=== PATIENT | female | born 1955 | race Caucasian/White ===

== ENCOUNTER 2022-03-06 08:28 | Outpatient (CLI) | payer MEDICARE, OTHER, SELFPAY ==
[2022-03-06 09:24] LABS: Basophils # 0.1 10^3/uL (0.0-0.1); Basophils % 0.9 %; Eosinophils # 0.1 10^3/uL (0.0-0.8); Eosinophils % 1.4 %; Hematocrit 44.5 % (37.0-47.0); Hemoglobin 14.5 g/dL (11.5-15.3); Lymphocytes # 1.8 10^3/uL (0.8-4.8); Lymphocytes % 31.4 %; Mean Corpuscular HGB Conc 32.6 g/dL (30.0-36.0); Mean Corpuscular Hemoglobin 30.4 pg (28.0-34.0); Mean Corpuscular Volume 93.3 fl (81-99); Mean Platelet Volume 10.7 fL (7.4-10.4); Monocytes # 0.4 10^3/uL (0.2-0.9); Monocytes % 6.5 %; Neutrophils # 3.33 10^3/uL (1.8-7.7); Neutrophils % 59.6 %; Nucleated Red Blood Cells % 0 %; Platelet Count 259 10^3/cmm (130-400); Red Blood Count 4.77 10^6/uL (4.1-5.3); White Blood Count 5.6 10^3/uL (4.0-10.0)
[2022-03-06 09:25] LABS: Erythrocyte Sedimentation Rate 3 mm/hr (0-15)
[2022-03-06 09:47] LABS: Alanine Aminotransferase 23 U/L (0-33); Aspartate Amino Transferase 19 U/L (0-32); C Reactive Protein 5.3 mg/L (0.0-4.9); Glomerular Filtration Rate 100.3 mL/min (90-130)
[2022-03-06 12:26] LABS: 25 Hydroxy Vitamin D 51 ng/mL (30-100)
== END 2022-03-06 08:29 | disposition home or self-care (01) ==
PROVIDERS: Visit Provider Physician Assistant
DX: Z01.89 Encounter for other specified special examinations (principal)
CPT/HCPCS: 36415; 82306; 82565; 84450; 84460; 85025; 85651; 86140

== ENCOUNTER → 2022-04-09 14:13 | Outpatient (BNVA) | payer MEDICARE, OTHER, SELFPAY | PROVIDERS: PCP Family Medicine; Visit Provider Specialist | DX: M17.0 Bilateral primary osteoarthritis of knee (principal) | CPT/HCPCS: 73560; 73565; 99205 ==

== ENCOUNTER 2022-04-20 07:23 | Outpatient (CLI) | payer MEDICARE, OTHER, SELFPAY ==
--- NOTE | 2022-04-20 07:30 | CT_ITS ---
WS: [id number] CT RIGHT knee, noncontrast HISTORY: right knee arthroplasty TECHNIQUE: Protocol for AARON total knee replacement has been obtained. This includes axial imaging th rough the RIGHT hip, RIGHT knee and RIGHT ankle. DLP: 883.21 mGy.cm COMPARISON: Radiograph 04/09/2022 Bilateral hips without significant joint space narrowing. No bone destruction. RIGHT knee: Very slight lateral subluxation of the patella. Very minimal joint space narrowing and os teophytic changes at the knee joint. RIGHT ankle: Negative. CT/CT knee RT wo con* [id number] IMPRESSION: CT imaging provided for [facility] robotic total knee replacement.
== END 2022-04-20 07:24 | disposition home or self-care (01) ==
PROVIDERS: PCP Family Medicine; Visit Provider Specialist
DX: Z96.651 Presence of right artificial knee joint (principal)
CPT/HCPCS: 73700

== ENCOUNTER 2022-05-01 12:24 | Inpatient (IN) | payer MEDICARE, OTHER, SELFPAY ==
[2022-04-24 11:20] LABS: Basophils % 0.6 %; Eosinophils # 0.1 10^3/uL (0.0-0.8); Eosinophils % 1.6 %; Hematocrit 45.8 % (37.0-47.0); Hemoglobin 15.4 g/dL (11.5-15.3); Lymphocytes # 2.1 10^3/uL (0.8-4.8); Lymphocytes % 33.3 %; Mean Corpuscular HGB Conc 33.6 g/dL (30.0-36.0); Mean Corpuscular Hemoglobin 30.8 pg (28.0-34.0); Mean Corpuscular Volume 91.6 fl (81-99); Mean Platelet Volume 10.6 fL (7.4-10.4); Monocytes # 0.5 10^3/uL (0.2-0.9); Monocytes % 7.2 %; Neutrophils # 3.54 10^3/uL (1.8-7.7); Neutrophils % 57.1 %; Nucleated Red Blood Cells % 0 %; Platelet Count 294 10^3/cmm (130-400); Red Cell Distribution Width 12.9 % (12.1-15.1); White Blood Count 6.2 10^3/uL (4.0-10.0)
[2022-04-24 11:30] LABS: Add Urine Microscopic? YES; Bilirubin Urine Neg (Negative); Blood Urine 2+ (Negative); Glucose Urine UA Norm (Normal); Ketones Urine Negative (Negative); Leukocyte Esterase Urine Negative (Negative); Nitrate Urine Negative (Negative); Protein Urine Neg (Negative); RBC Urine RARE /hpf (0-2); Urine Appearance Clear (CLEAR); Urine Color Yellow (Yellow); Urobilinogen Urine Norm (Negative); pH Urine 6 (5-7)
[2022-04-24 11:33] VITALS: BMI 37.6
[2022-04-24 11:42] LABS: Alanine Aminotransferase 37 U/L (0-33); Albumin Level 4.3 g/dL (3.5-5.2); Alkaline Phosphatase 99 U/L (35-105); Anion Gap 12.8 (5-19); Aspartate Amino Transferase 32 U/L (0-32); Blood Urea Nitrogen 12 mg/dL (8-23); Carbon Dioxide 30 mmol/L (22-29); Chloride 104 mmol/L (98-107); Globulin 2.9 g/dL (1.3-4.6); Glucose 155 mg/dL (65-115); Osmolality Calculated 299 mOsm/kg (285-295); Potassium 3.8 mmol/L (3.5-5.1); Sodium 143 mmol/L (136-145); Total Bilirubin 0.4 mg/dL (0.15-1.2); Total Protein 7.2 g/dL (6.6-8.7)
--- NOTE | 2022-04-24 11:51 | P.ANESASSM_ITS ---
Pre-Anesthetic Assessment Height/Weight: Height 1.57 m Weight 93.44 kg Preop Diagnosis: Primary osteoarthritis right knee Operation Date: 05/01/22 07:00 Proposed Procedures p RIGHT TOTAL KNEE ARTHROPLASTY WITH AARON GUIDANCE 57465, M17.10(Right) - Crystal Le MD Familial anesthetic complications: None Social No alcohol and No tobacco former smoker Exam alert, oriented x 3, clear to auscultation bilaterally and regular rate & rhythm Airway Mallampati: Class II Dentition: false Pulmonary None reported CV/HEM Hypertension None reported Hepatic None reported GI None reported Metabolic Hyperlipidemia and Thyroid Disease [facility] [place] None reported Neuropsych None reported Anesthetic Plan ASA status: 3 Anesthesia: Regional (specify below) Other: spinal + adductor Risk of > 500 ml blood loss (7ml/kg in children): Yes, adequate IV access and fluids planned Medications/Allergies Home Medications Medication Instructions Recorded Confirmed Last Taken Type adalimumab 40 mg/0.4 mL 40 mg SUBCUT Q14D 04/03/22 04/24/22 04/13/22 History subcutaneous pen kit (Humira(CF) Pen) folic acid 1 mg tablet 1 mg PO DAILY 04/03/22 04/24/22 04/24/22 History hydroxychloroquine 200 mg tablet 200 mg PO BID 04/03/22 04/24/22 04/24/22 History methotrexate sodium 2.5 mg tablet 20 mg PO .WEEKLY 04/03/22 04/24/22 04/20/22 History atorvastatin 10 mg tablet 10 mg PO BEDTIME 04/24/22 04/24/22 04/24/22 History cholecalciferol (vitamin D3) 25 50 mcg PO DAILY 04/24/22 04/24/22 04/24/22 History mcg (1,000 unit) capsule (Vitamin D3) levothyroxine 100 mcg capsule 100 mcg PO BEDTIME 04/24/22 04/24/22 04/24/22 History pregabalin 100 mg capsule 100 mg PO BID 04/24/22 04/24/22 04/24/22 History Allergies Allergy/AdvReac Type Severity Reaction Status Date / Time Sulfa (Sulfonamide Allergy Unknown Verified 04/09/22 14:15 Antibiotics) FOR[facility]LY [facility] Anesthesia Medical History Dyslipidemia Inflammatory polyarthropathy Osteoarthritis of right knee Type 2 diabetes mellitus without complications Vitamin D deficiency, unspecified Surgical History H/O thyroidectomy Partial H/O: hysterectomy Total. History of ankle surgery Left History of carpal tunnel surgery Left History of partial adrenalectomy Left - benign History of thumb surgery Left Hx of tonsillectomy Data Anesthesia 04/24/22 11:05 04/24/22 11:05 Short CBC 04/24/22 Range/Units 11:05 WBC 6.2 (4.0-10.0) 10^3/uL Hgb 15.4 H (11.5-15.3) g/dL Hct 45.8 (37.0-47.0) % MCV 91.6 (81-99) fl Plt Count 294 (130-400) 10^3/cmm Neut % (Auto) 57.1 % Neut # (Auto) 3.54 (1.8-7.7) 10^3/uL BMP 04/24/22 11:05 Sodium 143 Potassium 3.8 Chloride 104 BUN 12 Creatinine 0.6 Calcium 10.0 Liver Function 04/24/22 Range/Units 11:05 Total Bilirubin 0.4 (0.15-1.2) mg/dL AST 32 (0-32) U/L Alkaline Phosphatase 99 (35-105) U/L Albumin 4.3 (3.5-5.2) g/dL Urine 04/24/22 Range/Units 11:00 Urine Color Yellow (Yellow) Urine Appearance Clear (CLEAR) Urine pH 6 (5-7) Ur Specific [place] 1.010 (1.005-1.030) Urine Protein Neg (Negative) Urine Glucose (UA) Norm (Normal) Urine Ketones Negative (Negative) Urine Nitrate Negative (Negative) Urine Bilirubin Neg (Negative) Ur Leukocyte Esterase Negative (Negative) Urine RBC Rare (0-2) /hpf Urine WBC None (0-5) /hpf Cardiac Studies: No Data to Display
[2022-05-01] VITALS (18 sets, daily range): BP systolic 97–126; BP diastolic 47–72; PULSE 58–109; RESP 11–18; TEMP 36.1–37.6; O2SAT 90–100
[2022-05-01] MEDS: acetaminophen 1,000 MG/100 ML PIGGYBACK 400 MG IV ×2 (07:24→23:19)
[2022-05-01] MEDS: CELEcoxib 200 mg Capsule 400 MG PO (07:24)
[2022-05-01] MEDS: sodium chloride 0.9% 1,000 ML 30 ML IV (07:25)
--- NOTE | 2022-05-01 07:38 | P.ANESUD_ITS ---
Pre-Anesthetic Update Pre-Anesthetic Assessment: Date of Surgery/Procedure: 05/01/22 Preop Malou gnosis: Primary osteoarthritis right knee Proposed Procedure: Operation Date: 05/01/22 09:00 Proposed Procedures p RIGHT TOTAL KNEE ARTHROPLASTY WITH AARON GUIDANCE 09257, M17.10(Right) - Crystal Le MD Any changes to Pre-Anesthetic Assessment?: No Last Intake: Intake Last Liquid Date 04/30/22 Last Liquid Time 20:00 Last Solid Date 04/30/22 Last Solid Time 20:00 Exam: Pre-Anes Outpt Exam: alert, oriented x 3, clear to auscultation bilaterally and regular rate & rhythm Cardiac Studies: No Data to Display
--- NOTE | 2022-05-01 08:54 | P.HPUD_ITS ---
Surgery/Procedure H&P Update DATE OF PROCEDURE: May 01, 2022 DATE H&P PERFORMED: 04/09/22 H&P UPDATE INFORMATION: I have reviewed H&P completed within last 30 days, I have examined patient prior to procedure, No changes to prior documentation and H&P is in [facility] [place] EMR on date indicated PREOP DIAGNOSIS: Primary osteoarthritis right knee PLANNED PROCEDURE: Operation Date: 05/01/22 09:00 Proposed Procedures p RIGHT TOTAL KNEE ARTHROPLASTY WITH AARON GUIDANCE 58190, M17.10(Right) - Crystal Le MD Related Problem List Diagnoses (1) Osteoarthritis of right knee: Qualifiers: Osteoarthritis type: primary Qualified Code(s): M17.11 - Unilateral primary osteoarthritis, right knee
[2022-05-01] MEDS: ceFAZolin 2,000 MG in sodium chloride 0.9% (plus) 50 ML 100 MG IV ×2 (09:23→17:42)
[2022-05-01 10:22] LABS: Hematocrit 38.2 % (37.0-47.0); Hemoglobin 12.6 g/dL (11.5-15.3); Mean Corpuscular Hemoglobin 30.3 pg (28.0-34.0); Mean Corpuscular Volume 91.8 fl (81-99); Mean Platelet Volume 10.8 fL (7.4-10.4); Platelet Count 238 10^3/cmm (130-400); Red Blood Count 4.16 10^6/uL (4.1-5.3); Red Cell Distribution Width 12.6 % (12.1-15.1); White Blood Count 6.2 10^3/uL (4.0-10.0)
[2022-05-01 10:48] LABS: Absolute Neutrophil 3.8 10^3/cmm (1.4-6.5); Absolute Segmented Neutrophil 3.8 10/cmm (1.6-7.1); Eosinophils 1 %; Lymphocytes 29 %; Lymphocytes Absolute 2.1 10^3/cmm (1.2-3.4); Monocytes Absolute 0.2 10^3/cmm (0.1-0.6); Platelet Estimate Normal (Normal); Segmented Neutrophils 61 %; Total Cells Counted 100 (0-100)
--- NOTE | 2022-05-01 11:21 | P.ANESASSM_ITS ---
Pre-Anesthetic Assessment Height/Weight: Height 1.57 m Weight 93.44 kg Temp Pulse Resp BP Pulse Ox O2 Del Method 97 F L 58 L 18 105/69 94 05/01/22 07:39 05/01/22 07:39 05/01/22 07:39 05/01/22 07:39 05/01/22 07:39 05/01/22 07:39 Preop Diagnosis: Primary osteoarthritis right knee Operation Date: 05/01/22 09:00 Proposed Procedures p RIGHT TOTAL KNEE ARTHROPLASTY WITH AARON GUIDANCE 91386, M17.10(Right) - Crystal Le MD Familial anesthetic complications: none Was Beta Justin taken within 24 hours: N/A Was Clonidine taken within 24 hours: N/A Last intake: Intake Last Liquid Date 04/30/22 Last Liquid Time 20:00 Last Solid Date 04/30/22 Last Solid Time 20:00 Social No alcohol and No tobacco Exam alert, oriented x 3, clear to auscultation bilaterally and regular rate & rhythm Airway Submandibular: within normal limits Cervical ROM: within normal limits Mallampati: Class II Dentition: full Metabolic Diabetes Mellitus, Hyperlipidemia and Thyroid Disease [facility] Osteoarthritis/DJD Neuropsych Cerebrovascular Accident, Deficit (vision issues) and Neuropathy (pain) Anesthetic Plan ASA status: 3 Anesthesia: General and Regional (specify below) (Discussed popliteal blk for postop pain if extreme pain postop (surgeon wants to do nerve eval first)) Medications/Allergies Home Medications Medication Instructions Recorded Confirmed Last Taken Type adalimumab 40 mg/0.4 mL 40 mg SUBCUT Q14D 04/03/22 04/24/22 04/13/22 History subcutaneous pen kit (Humira(CF) Pen) folic acid 1 mg tablet 1 mg PO DAILY 04/03/22 05/01/22 1 Day Ago History ~04/30/22 hydroxychloroquine 200 mg tablet 200 mg PO BID 04/03/22 05/01/22 1 Day Ago History ~04/30/22 methotrexate sodium 2.5 mg tablet 20 mg PO .WEEKLY 04/03/22 05/01/22 1 Day Ago History ~04/30/22 atorvastatin 10 mg tablet 10 mg PO BEDTIME 04/24/22 05/01/22 1 Day Ago History ~04/30/22 cholecalciferol (vitamin D3) 25 50 mcg PO DAILY 04/24/22 05/01/22 1 Day Ago History mcg (1,000 unit) capsule (Vitamin ~04/30/22 D3) levothyroxine 100 mcg capsule 100 mcg PO BEDTIME 04/24/22 05/01/22 1 Day Ago History ~04/30/22 pregabalin 100 mg capsule 100 mg PO BID 04/24/22 05/01/22 1 Day Ago History ~04/30/22 Allergies Allergy/AdvReac Type Severity Reaction Status Date / Time Sulfa (Sulfonamide Allergy Unknown Verified 05/01/22 07:12 Antibiotics) Current Medications Generic Name Dose Route Start Last Admin Trade Name Freq PRN Reason Stop Dose Admin Sodium Chloride 1,000 mls @ 30 mls/hr 05/01/22 07:15 05/01/22 07:25 Sodium Chloride 0.9% IV 05/02/22 07:14 30 mls/hr .Q24H MEENA Administration PFSH Anesthesia Medical History Dyslipidemia Inflammatory polyarthropathy Osteoarthritis of right knee Type 2 diabetes mellitus without complications Vitamin D deficiency, unspecified Surgical History H/O thyroidectomy Partial H/O: hysterectomy Total. History of ankle surgery Left History of carpal tunnel surgery Left History of partial adrenalectomy Left - benign History of thumb surgery Left Hx of tonsillectomy Data Anesthesia 05/01/22 10:11 04/24/22 11:05 Short CBC 05/01/22 Range/Units 10:11 WBC 6.2 (4.0-10.0) 10^3/uL Hgb 12.6 (11.5-15.3) g/dL Hct 38.2 (37.0-47.0) % MCV 91.8 (81-99) fl Plt Count 238 (130-400) 10^3/cmm Microbiology 05/01/22 10:05 Gram Stain - Final Knee - Right Cardiac Studies: No Data to Display
--- NOTE | 2022-05-01 11:25 | ANES.PROC ---
Anesthesia Procedures Procedure/Date: 05/01/22 Nerve Block ^: Nerve Block 1: Main Anesthesia: spinal anesthesia block Time Out Performed: Yes Consent: requested by attending/covering physician, from patient, risks and benefits reviewed and patient agrees to proceed Nerve block location: adductor canal (right) Anesthesia monitors applied: pulse oximetry, EKG, BP cuff and oxygen Nerve block position: supine Anesthetic Used: ropivicaine 0.5% Amount of anesthesia used (mL): 20 Ultrasound used to: recognize landmarks Nerve Stimulator Used?: No Interscalene/Femoral BLK: 4 stimuplex 21 g needle used for position and inplane approach Injection: neg aspiration of heme Patient Tolerated Procedure: well Complications: none
[2022-05-01] MEDS: ceFAZolin 1,000 mg SDV 3000 MG IRRIGATION (11:26)
[2022-05-01] MEDS: ceFAZolin 1,000 mg SDV 2000 MG IRRIGATION (11:27)
[2022-05-01] MEDS: vancomycin 1,000 MG SDV 1000 MG XX (11:29)
--- NOTE | 2022-05-01 12:08 | PM.OP ---
Operative Report Date of procedure: May 01, 2022 Pre-op diagnosis: Primary osteoarthritis right knee Post-op diagnosis: Primary osteoarthritis right knee with abnormal synovial fluid concerning for septic knee. Post-op findings: Slightly cloudy fluid with debris wet prep per pathology concerning for possible bacteria, gram stain read as no organisms seen but with white blood cells. Procedure done: Right knee arthrotomy with biopsy of synovial fluid and cultures Aborted total knee arthroplasty. Implants: None Specimens removed/disposition: Synovial fluid for culture and pathology Surgeon: Crystal Le Corrugator Operator: [facility] operating room technicians Anesthesia: MAC (With spinal, ASA 3) Estimated blood loss (mL): 20 Tourniquet time (min): 8 (At 250 mmHg) IV fluids (mL): 1,100 Urine output (mL): 200 Complications: Slightly cloudy fluid with debris concerning for possible low-grade infection. Findings: Fluid evaluated by pathology as concerning for bacteria, Gram stain subsequently performed demonstrated white blood cells with no organisms seen. In discussion with the pathologist, he felt that there may be a gram-negative within the fluid. Therefore, the total knee was aborted. Condition: stable Disposition: PACU (Then to floor for postoperative rehab.) Brief History: Latasha Rodriguez is a new 66 year old female patient who is here today due to bilateral knee pain. Patient states pain is 8/10 in clinic today.? Patient states pain has been present for 2 years. Pain inhibits patient from being able to: walking long distances, standing long periods of time, up/down stairs, bending, pain wakes her at night. Patient states right is worse than left. Patient presented today for right total knee arthroplasty, however, upon entry into the knee joint, there was copious fluid that was slightly cloudy in nature with debris. I had pathology evaluate the fluid, and there was enough concern for possible low-grade infection that the total knee arthroplasty was aborted, but the arthrotomy with biopsy had been performed. At the time the patient was seen preoperatively, consents were signed and questions were answered. She was seen in the PACU area following her surgery and discussion was undertaken with the patient regarding findings which precluded us from proceeding with total knee arthroplasty. Procedure: The patient was brought to the operating theater, and after undergoing adequate spinal anesthesia with MAC, ASA 3, the right lower extremity was prepped and draped in usual fashion following placement of a tourniquet high on the leg. The leg was then draped free with the prepping accomplished with DuraPrep. Following prepping and draping, the leg was exsanguinated, and the tourniquet was elevated to 250 mmHg for total tourniquet time of 8 minutes. Prior to elevation of the tourniquet the following exposure of the site of surgery, a surgical pause was performed. At the time of the surgical pause we confirmed the site and side of surgery. Additionally, we confirmed the appropriate and timely administration of preoperative antibiotics. The availability of equipment was confirmed, and the patient's identity was verbalized as well. Following the surgical pause, an incision was made centering over the patella continuing proximally and distally as necessary to allow access to the knee joint. Dissection continued through skin and soft tissues using a scalpel. Hemostasis was obtained using electrocautery. The midline skin incision was followed by a median parapatellar arthrotomy. We dissected down into the knee joint, and a cloudy type fluid was encountered with debris. This was aspirated and pathology was consulted immediately. Upon consultation with pathology, a wet prep looked as though there was bacteria surrounding neutrophils. There was evidence of acute inflammation in the form of neutrophils. Subsequent Gram stain was obtained immediately as well, and this demonstrated concern for gram-negative bacteria, but the gram stain was read as no organisms seen with few white blood cells. Given the findings on the wet prep with pathology and discussion with the pathologist, the total knee was aborted pending cultures. The cultures will be held for 10 days. While waiting for the gram stain, discussion was undertaken with the patient's family, and they understand the reasons for aborting the total knee arthroplasty. A similar discussion was had with the patient in the recovery room after closure. Closure was accomplished with #1 PDS in the fascial tissues, 2-0 Monocryl was used in the subcutaneous tissues, and the skin was closed with skin dayne. A sterile dressing was then placed consisting of Dermabond pernio, OpSite, sterile soft roll, and an Dakota wrap. The patient was returned the Recovery Room in a satisfactory condition. The patient will be discharged to the floor for postoperative pain management. Related Problem List Diagnoses (1) Osteoarthritis of right knee: (2) Abnormal synovial fluid:
--- NOTE | 2022-05-01 12:39 | SUR.PHASEI ---
1210 Pt has bilat SCDs on and on the pump and pump working
[2022-05-01 13:02] LABS: Apprearance, Body Fluid CLOUDY; Color, Body Fluid COLORLESS
[2022-05-01 13:28] LABS: Cyto Order Verification Order Verified
[2022-05-01 14:05] LABS: PATH Referral YES
[2022-05-01] MEDS: oxyCODONE 5 mg IR Tab/Cap PO ×2 (14:06→19:58)
--- NOTE | 2022-05-01 14:11 | ANE.PACU2 ---
Inpatient post-anesthesia follow up: Airway intact: Yes Vital signs: Temperature 97.6 F Pulse Rate 61 Respiratory Rate 18 Blood Pressure 104/47 Pulse Oximetry 92 Oxygen Delivery Me thod Room Air Oxygen Flow Rate 6 Fraction of Inspir ed Oxygen Hydration adequate: Yes Nausea and vomiting: No Pain level: 1 Mental status: Baseline Additional Comments: Case cancelled secondary to abnormal fluid in knee.
[2022-05-01] MEDS: iron polysaccharide complex 150 mg Capsule PO (17:40)
[2022-05-01] MEDS: sennosides-docusate Tablet 2 TAB PO (17:41)
[2022-05-01] MEDS: mupirocin oint 22 gm 1 APPLIC NASAL (17:41)
[2022-05-01] MEDS: pregabalin 100 mg Capsule PO (17:43)
[2022-05-01] MEDS: calcium carbonate 500 mg Chew Tablet 1000 MG PO (17:47)
[2022-05-01] MEDS: ondansetron 2 mg/ML SDV 2 mL 4 MG IVP (19:58)
[2022-05-01] MEDS: levothyroxine 100 mcg Tablet PO (19:59)
[2022-05-01] MEDS: atorvastatin 40 mg Tablet 20 MG PO (20:00)
[2022-05-01] MEDS: chlorhexidine gluconate 0.12% Btl 473 mL 30 ML MUCOUS MEM (23:19)
[2022-05-02] VITALS (9 sets, daily range): BP systolic 108–149; BP diastolic 67–94; PULSE 57–76; RESP 16–19; TEMP 36.4–37.6; O2SAT 91–94
[2022-05-02] MEDS: ceFAZolin 2,000 MG in sodium chloride 0.9% (plus) 50 ML 100 MG IV ×2 (00:36→08:28)
[2022-05-02] MEDS: oxyCODONE 5 mg IR Tab/Cap PO ×2 (03:22→08:29)
[2022-05-02 05:19] LABS: Basophils % 0.4 %; Eosinophils # 0.1 10^3/uL (0.0-0.8); Eosinophils % 0.5 %; Hematocrit 38.4 % (37.0-47.0); Lymphocytes # 1.5 10^3/uL (0.8-4.8); Lymphocytes % 16.8 %; Mean Corpuscular HGB Conc 33.9 g/dL (30.0-36.0); Mean Corpuscular Hemoglobin 30.9 pg (28.0-34.0); Mean Corpuscular Volume 91.2 fl (81-99); Mean Platelet Volume 10.8 fL (7.4-10.4); Monocytes # 0.7 10^3/uL (0.2-0.9); Monocytes % 7.7 %; Neutrophils # 6.79 10^3/uL (1.8-7.7); Neutrophils % 74.3 %; Nucleated Red Blood Cells % 0 %; Platelet Count 246 10^3/cmm (130-400); Red Blood Count 4.21 10^6/uL (4.1-5.3); Red Cell Distribution Width 12.8 % (12.1-15.1); White Blood Count 9.2 10^3/uL (4.0-10.0)
[2022-05-02 05:39] LABS: Blood Urea Nitrogen 10 mg/dL (8-23); Calcium 8.5 mg/dL (8.5-10.5); Carbon Dioxide 27 mmol/L (22-29); Chloride 102 mmol/L (98-107); Glucose 146 mg/dL (65-115); Osmolality Calculated 286 mOsm/kg (285-295); Sodium 137 mmol/L (136-145)
[2022-05-02] MEDS: acetaminophen 1,000 MG/100 ML PIGGYBACK 400 MG IV ×2 (06:29→15:41)
[2022-05-02] MEDS: cholecalciferol (vitamin D3) 1,000 unit Tablet 1000 UNIT PO (08:30)
[2022-05-02] MEDS: calcium carbonate 500 mg Chew Tablet 1000 MG PO ×2 (08:30→17:18)
[2022-05-02] MEDS: sennosides-docusate Tablet 2 TAB PO ×2 (08:30→17:18)
[2022-05-02] MEDS: iron polysaccharide complex 150 mg Capsule PO ×2 (08:30→17:18)
[2022-05-02] MEDS: pregabalin 100 mg Capsule PO ×2 (08:30→17:18)
[2022-05-02] MEDS: aspirin 325 mg EC Tablet PO (08:31)
[2022-05-02] MEDS: chlorhexidine gluconate 0.12% Btl 473 mL 30 ML MUCOUS MEM ×4 (08:31→20:48)
[2022-05-02] MEDS: multivitamin therapeutic Tablet 1 TAB PO (08:31)
[2022-05-02] MEDS: mupirocin oint 22 gm 1 APPLIC NASAL ×2 (08:37→17:21)
--- NOTE | 2022-05-02 13:00 | P.PN_ITS ---
Subjective Subjective: Patient had difficulty with physical therapy today secondary to pain in her knee. Medications: Reviewed: Yes Vitals/I&O/Wt Last Vital Signs Temp 99.7 F H 05/02/22 16:00 Pulse 66 05/02/22 16:00 Resp 17 05/02/22 16:00 BP 137/73 05/02/22 16:00 Pulse Ox 93 05/02/22 16:00 O2 Del Method 05/02/22 16:00 O2 Flow Rate 6 05/01/22 12:08 05/02/22 05/02/22 05/02/22 06:59 14:59 22:59 Intake Total 150 / 2040 630 / 630 Balance 150 / 1840 630 / 630 Physical Exam Const: COMMON NORMALS: no acute distress, average body habitus, patient oriented x3 and alert GENERAL APPEARANCE: cooperative and comfortable ORIENTATION/CONSCIOUSNESS: Yes awake HENMT: COMMON NORMALS: normocephalic and atraumatic HEAD & SCALP: normocephalic and atraumatic Eye: GENERAL EYE: appearance normal, both eyes and all related structures Chest: COMMONS NORMALS: normal inspection of the chest Resp: COMMON NORMALS: normal respiratory effort EFFORT & INSPECTION: Yes able to speak in complete sentences and Yes symmetric chest movement Extremity: RIGHT LOWER EXTREMITY: Yes knee joint (Dressing is removed and the patient is more comfortable.) Right knee: Yes inspection (No significant swelling or bruising.), Yes palpation (Tenderness.), Yes ROM (Not evaluated.) and Yes neurovascular exam (Intact with no evidence of DVT.) Neuro: COMMON NORMALS: patient oriented x3 SENSORIUM/ORIENTATION: Yes alert Psych: COMMON NORMALS: mental status grossly normal APPEARANCE: Yes grossly normal ATTITUDE: Yes calm and Yes engaged ATTENTION/CONCENTRATION: Yes attention grossly intact Skin: COMMON NORMALS: no rashes or lesions noted GENERAL SKIN EXAM: no belgica hes or lesions noted Urinary Catheter Management: [place]: Cath Placed During This Visit: yes Urinary Catheter Date of Insertion: 05/01/22 Urinary Catheter Time of Insertion: 09:35 Data 05/02/22 05:02 05/02/22 05:02 Micro: Microbiology 05/01/22 10:05 Gram Stain - Final Knee - Right Anaerobic Culture - Preliminary Abscess Culture - Preliminary 05/01/22 10:05 Gram Stain - Final Other Source Body Fluid Culture - Preliminary Cultures remain negative at this time. A&P Assessment and plan (1) Osteoarthritis of right knee: Patient is status post aborted total knee arthroplasty with arthrotomy and biopsy. She has significant pain and will require an additional day in the hospital for independence and ambulation. Qualifiers: Osteoarthritis type: primary Qualified Code(s): M17.11 - Unilateral primary osteoarthritis, right knee (2) Abnormal synovial fluid: Cultures are negative at this time. Attestations Medical Necessity Statement*: Patient requires ongoing hospitalization for physical therapy so that she can improve independence and ambulate effectively prior to discharge. Coding Level of Care Code Acute Code for [facility] Diagnoses Osteoarthritis of right knee M17.11 Osteoarthritis type: primary Abnormal synovial fluid R89.9
[2022-05-02] MEDS: HYDROcodone-acetaminophen 7.5-325 mg Tablet 1 TAB PO ×2 (13:31→23:43)
[2022-05-02] MEDS: atorvastatin 40 mg Tablet 20 MG PO (20:48)
[2022-05-02] MEDS: levothyroxine 100 mcg Tablet PO (20:49)
[2022-05-03 04:01] VITALS: BP 152/85; PULSE 69; RESP 18; TEMP 37; O2SAT 94
[2022-05-03] MEDS: HYDROcodone-acetaminophen 7.5-325 mg Tablet 1 TAB PO ×2 (05:10→09:48)
[2022-05-03 07:48] VITALS: BP 139/79; PULSE 64; RESP 18; TEMP 36.9; O2SAT 92
[2022-05-03] MEDS: aspirin 325 mg EC Tablet PO (09:44)
[2022-05-03] MEDS: pregabalin 100 mg Capsule PO (09:44)
[2022-05-03] MEDS: cholecalciferol (vitamin D3) 1,000 unit Tablet 1000 UNIT PO (09:44)
[2022-05-03] MEDS: iron polysaccharide complex 150 mg Capsule PO (09:44)
[2022-05-03] MEDS: calcium carbonate 500 mg Chew Tablet 1000 MG PO (09:44)
[2022-05-03] MEDS: sennosides-docusate Tablet 2 TAB PO (09:44)
[2022-05-03] MEDS: chlorhexidine gluconate 0.12% Btl 473 mL 30 ML MUCOUS MEM (09:45)
[2022-05-03] MEDS: multivitamin therapeutic Tablet 1 TAB PO (09:45)
[2022-05-03 12:00] VITALS: BP 134/70; PULSE 66; RESP 18; TEMP 36.6; O2SAT 97
--- NOTE | 2022-05-03 13:27 | PC.NURSE ---
Discharge Note Patient discharged to home via private vehicle accompanied by . Discharge instructions reviewed with patient and/or key account representative. Mobile pharmacy medications and/or prescriptions provided. Belongings/home medications returned.
--- NOTE | 2022-05-03 13:32 | PM.DCS ---
Discharge Providers Date of Admission: 05/02/22 19:26 Date of Discharge: May 03, 2022 Attending Provider at Admission: Crystal Le MD Attending Provider at Discharge: Crystal Le MD Primary Care Provider: Rose Greer DO Diagnoses at Discharge Discharge Diagnosis (1) Osteoarthritis of right knee: Status: Acute Qualifiers: Osteoarthritis type: primary Qualified Code(s): M17.11 - Unilateral primary osteoarthritis, right knee (2) Abnormal synovial fluid: Status: Acute Reason for Visit Reason for Visit: M17.10 Brief History: Latasha Rodriguez is a new 66 year old female patient who is here today due to bilateral knee pain. Patient states pain is 8/10 in clinic today.? Patient states pain has been present for 2 years. Pain inhibits patient from being able to: walking long distances, standing long periods of time, up/down stairs, bending, pain wakes her at night. Patient states right is worse than left.? Patient presented today for right total knee arthroplasty, however, upon entry into the knee joint, there was copious fluid that was slightly cloudy in nature with debris.? I had pathology evaluate the fluid, and there was enough concern for possible low-grade infection that the total knee arthroplasty was aborted, but the arthrotomy with biopsy had been performed.? At the time the patient was seen preoperatively, consents were signed and questions were answered.? She was seen in the PACU area following her surgery and discussion was undertaken with the patient regarding findings which precluded us from proceeding with total knee arthroplasty. Hospital Course Hospital Course As noted above, the patient was admitted for same-day surgery in the form of right total knee arthroplasty. Arthrotomy was performed, and the joint fluid was noted to be slightly cloudy with particulate matter. Initial pathology assessment was of possible bacteria visualized in the fluid. Gram stain was felt to demonstrate no organisms, but there were neutrophils in both specimens which indicated acute inflammatory responses. It was felt prudent given the patient's findings and the synovium to delay her total knee arthroplasty until cultures could be finalized. Therefore, her arthrotomy incision was closed and the patient was admitted to the floor for postoperative antibiotics and rehabilitation. She will be rescheduled in approximately 2 weeks provided cultures remain negative. Physical Exam Const: COMMON NORMALS: no acute distress, average body habitus, patient oriented x3 and alert GENERAL APPEARANCE: cooperative and comfortable ORIENTATION/CONSCIOUSNESS: Yes awake HENMT: COMMON NORMALS: normocephalic and atraumatic HEAD & SCALP: normocephalic and atraumatic Eye: GENERAL EYE: appearance normal, both eyes and all related structures Chest: COMMONS NORMALS: normal inspection of the chest Resp: COMMON NORMALS: normal respiratory effort EFFORT & INSPECTION: Yes able to speak in complete sentences and Yes symmetric chest movement Extremity: RIGHT LOWER EXTREMITY: Yes knee joint Right knee: Yes inspection (No significant ecchymosis or drainage), Yes palpation (Minimal to no tenderness) and Yes neurovascular exam (Intact with no evidence of DVT) Neuro: COMMON NORMALS: patient oriented x3 SENSORIUM/ORIENTATION: Yes alert Psych: COMMON NORMALS: mental status grossly normal APPEARANCE: Yes grossly normal ATTITUDE: Yes calm and Yes engaged ATTENTION/CONCENTRATION: Yes attention grossly intact Skin: COMMON NORMALS: no rashes or lesions noted GENERAL SKIN EXAM: no rashes or lesions noted Urinary Catheter Management: [place]: Cath Placed During This Visit: yes, but has since been removed by the nurse Reason for Continuing Indwelling Catheter: Perioperative Use in Selected Surgeries Urinary Catheter Date of Insertion: 05/01/22 Urinary Catheter Time of Insertion: 09:35 Date Urinary Catheter Removed: 05/02/22 Time Urinary Catheter Discontinued: 18:01 Discharge Data Studies Completed and Pending Pending at discharge Category Date Time Status Abscess Culture and Gram Stain Routine Lab 05/01/22 10:05 Results Anaerobic Culture Routine Lab 05/01/22 10:05 Results Body Fluid Culture & GS Stat Lab 05/01/22 10:05 Results Cultures remain negative at time of discharge Laboratory Results WBC 9.2 10^3/uL (4.0-10.0) 05/02/22 05:02 RBC 4.21 10^6/uL (4.1-5.3) 05/02/22 05:02 Hgb 13.0 g/dL (11.5-15.3) 05/02/22 05:02 Hct 38.4 % (37.0-47.0) 05/02/22 05:02 MCV 91.2 fl (81-99) 05/02/22 05:02 MCH 30.9 pg (28.0-34.0) 05/02/22 05:02 MCHC 33.9 g/dL (30.0-36.0) 05/02/22 05:02 RDW 12.8 % (12.1-15.1) 05/02/22 05:02 Plt Count 246 10^3/cmm (130-400) 05/02/22 05:02 MPV 10.8 fL (7.4-10.4) H 05/02/22 05:02 Neut % (Auto) 74.3 % 05/02/22 05:02 Lymph % (Auto) 16.8 % 05/02/22 05:02 [place] % (Auto) 7.7 % 05/02/22 05:02 Eos % (Auto) 0.5 % 05/02/22 05:02 Baso % (Auto) 0.4 % 05/02/22 05:02 Neut # (Auto) 6.79 10^3/uL (1.8-7.7) 05/02/22 05:02 Lymph # (Auto) 1.5 10^3/uL (0.8-4.8) 05/02/22 05:02 [place] # (Auto) 0.7 10^3/uL (0.2-0.9) 05/02/22 05:02 Eos # (Auto) 0.1 10^3/uL (0.0-0.8) 05/02/22 05:02 Baso # (Auto) 0.0 10^3/uL (0.0-0.1) 05/02/22 05:02 Nucleated RBC % (auto) 0 % 05/02/22 05:02 Total Counted 100 (0-100) 05/01/22 10:11 Atypical Lymphs % 5.0 % (0-5) 05/01/22 10:11 Absolute Neutrophils 3.8 10^3/cmm (1.4-6.5) 05/01/22 10:11 Segmented Neutrophils 61 % 05/01/22 10:11 Abs Segm Neuts (Man) 3.8 10/cmm (1.6-7.1) 05/01/22 10:11 Band Neutrophils 0.0 % 05/01/22 10:11 Abs Band Neuts (Man) 0.0 10^3/cmm (0.0-1.2) 05/01/22 10:11 Absolute Lymphocytes 2.1 10^3/cmm (1.2-3.4) 05/01/22 10:11 Lymphocytes (Manual) 29 % 05/01/22 10:11 Monocytes (Manual) 4.0 % 05/01/22 10:11 Absolute Monocytes 0.2 10^3/cmm (0.1-0.6) 05/01/22 10:11 Eosinophils (Manual) 1 % 05/01/22 10:11 Absolute Eosinophils 0.0 10^3/cmm (0.0-0.7) 05/01/22 10:11 Basophils (Manual) 0.0 % 05/01/22 10:11 Absolute Basophils 0.0 10^3/cmm (0.0-0.2) 05/01/22 10:11 Nucleated RBCs # 0.0 /100WBC 05/02/22 05:02 Differential Comment Yes 05/01/22 10:07 Platelet Estimate Normal (Normal) 05/01/22 10:11 Sodium 137 mmol/L (136-145) 05/02/22 05:02 Potassium 4.0 mmol/L (3.5-5.1) 05/02/22 05:02 Chloride 102 mmol/L (98-107) 05/02/22 05:02 Carbon Dioxide 27 mmol/L (22-29) 05/02/22 05:02 Anion Gap 12.0 (5-19) 05/02/22 05:02 BUN 10 mg/dL (8-23) 05/02/22 05:02 Creatinine 0.6 mg/dL (0.5-0.9) 05/02/22 05:02 GFR Calculation 100.0 mL/min (90-130) 05/02/22 05:02 Glucose 146 mg/dL (65-115) H 05/02/22 05:02 Calculated Osmolality 286 mOsm/kg (285-295) 05/02/22 05:02 Calcium 8.5 mg/dL (8.5-10.5) 05/02/22 05:02 Total Bilirubin 0.4 mg/dL (0.15-1.2) 04/24/22 11:05 AST 32 U/L (0-32) 04/24/22 11:05 ALT 37 U/L (0-33) H 04/24/22 11:05 Alkaline Phosphatase 99 U/L (35-105) 04/24/22 11:05 Total Protein 7.2 g/dL (6.6-8.7) 04/24/22 11:05 Albumin 4.3 g/dL (3.5-5.2) 04/24/22 11:05 Globulin 2.9 g/dL (1.3-4.6) 04/24/22 11:05 Urine Color Yellow (Yellow) 04/24/22 11:00 Urine Appearance Clear (CLEAR) 04/24/22 11:00 Urine pH 6 (5-7) 04/24/22 11:00 Ur Specific Hope 1.010 (1.005-1.030) 04/24/22 11:00 Urine Protein Neg (Negative) 04/24/22 11:00 Urine Glucose (UA) Norm (Normal) 04/24/22 11:00 Urine Ketones Negative (Negative) 04/24/22 11:00 Urine Blood 2+ (Negative) H 04/24/22 11:00 Urine Nitrate Negative (Negative) 04/24/22 11:00 Urine Bilirubin Neg (Negative) 04/24/22 11:00 Urine Urobilinogen Norm mg/dL (Negative) 04/24/22 11:00 Ur Leukocyte Esterase Negative (Negative) 04/24/22 11:00 Urine RBC Rare /hpf (0-2) 04/24/22 11:00 Urine WBC None /hpf (0-5) 04/24/22 11:00 Ur Squamous Epith Cells None /hpf (0-5) 04/24/22 11:00 Amorphous Sediment Not Reportable 04/24/22 11:00 Urine Bacteria None /hpf (NONE) 04/24/22 11:00 Fluid Color Colorless 05/01/22 10:07 Fluid Appearance Cloudy 05/01/22 10:07 Fluid WBC Bicycle Repairman 05/01/22 10:07 Fluid RBC Bicycle Repairman 05/01/22 10:07 Fld Polynuclear WBCs # Bicycle Repairman 05/01/22 10:07 Fld Polynuclear WBCs % Not Reportable 05/01/22 10:07 Fl Mononucl WBCs #(Auto) Not Reportable 05/01/22 10:07 Fl Mononuclear % Auto Not Reportable 05/01/22 10:07 Pleural Color Cancelled 05/01/22 10:07 Pleural Appearance Cancelled 05/01/22 10:07 Pleural WBC Cancelled 05/01/22 10:07 Pleural RBC Cancelled 05/01/22 10:07 Pleural Other Cells Cancelled 05/01/22 10:07 Pleural Polynuclear % Cancelled 05/01/22 10:07 Pleural Mononuclear % Cancelled 05/01/22 10:07 Path Cons w/Slide Cancelled 05/01/22 10:07 Vitals Last Vital Signs Temp 98 F 05/03/22 12:00 Pulse 66 05/03/22 12:00 Resp 18 05/03/22 12:00 BP 134/70 05/03/22 12:00 Pulse Ox 97 05/03/22 12:00 O2 Del Method 05/03/22 12:00 O2 Flow Rate 6 05/01/22 12:08 Discharge Plan Discharge Patient Disposition: Home Health Service Condition: Stable Prescriptions: New hydrocodone-acetaminophen 7.5-325 mg Tablet 1 tab PO Q4H PRN (Reason: Moderate Pain) 7 Days Qty: 30 0RF aspirin 325 mg Tablet,Delayed Release (Dr/Ec) 325 mg PO DAILY 7 Days Qty: 7 0RF Continued folic acid 1 mg tablet 1 mg PO DAILY cholecalciferol (vitamin D3) [Vitamin D3] 25 mcg (1,000 unit) Capsule 50 mcg PO DAILY levothyroxine 100 mcg capsule 100 mcg PO BEDTIME atorvastatin 10 mg tablet 10 mg PO BEDTIME pregabalin 100 mg capsule 100 mg PO BID Rx Instructions: TAKES 1 IN THE MORNING AND 2 AT NIGHT Held Humira(CF) Pen 40 mg/0.4 mL pen injector kit 40 mg SUBCUT Q14D Hold Instructions: Resume on 05/28/22. Rx Instructions: start on day 29 of therapy hydroxychloroquine 200 mg tablet 200 mg PO BID Hold Instructions: Resume on 05/28/22. methotrexate sodium 2.5 mg tablet 20 mg PO .WEEKLY Hold Instructions: Resume on 05/28/22. Discharge Orders: Discharge Order (Routine); Ordered 05/03/22 Ordered By: Crystal Le Referrals: Crystal Le MD [Physician] - 7-10 days Discharge Diet: Advance as tolerated and Usual diet Discharge Activity: Resume usual activity, Increase activity as tolerated, Limit activity as instructed and Use walker/crutches as instructed Patient Instructions: Opioid Safety Activity Restrictions/Additional Instructions: Weight-bear as tolerated. Ice to right lower extremity. Maintain current dressing. Discharge Attestations Time Spent in Discharge Care*: greater than 30 min Specific Discharge Activities: educating patient, documenting/other paperwork and evaluating patient/reviewing data Quality Metrics Clinical Quality Measures [ No reported AMI, CVA or VTE this stay] Coding Level of Care Code Acute Code for Chg Fwd Diagnoses Osteoarthritis of right knee M17.11 Osteoarthritis type: primary Abnormal synovial fluid R89.9
[2022-05-03 15:16] VITALS: BP 134/70; PULSE 66; RESP 18; TEMP 36.6; O2SAT 97
== END 2022-05-03 16:38 | disposition home or self-care (01) | DRG 554 ==
LOC: MEDSURG 12:24
PROVIDERS: Admitting Provider Specialist; PCP Family Medicine; Visit Provider Specialist
PROC: 0S9C0ZX Drainage of Right Knee Joint, Open Approach, Diagnostic (ICD-10-PCS; principal; 2022-05-01 09:00)
PROC: 0S9C0ZX Drainage of Right Knee Joint, Open Approach, Diagnostic (ICD-10-PCS; CPT 24000; 2022-05-01 09:00)
DX: M17.11 Unilateral primary osteoarthritis, right knee (principal); R89.9 Unspecified abnormal finding in specimens from other organs, systems and tissues
CPT/HCPCS: 36415; 51702; 80048; 80053; 80503; 81001; 85007; 85025; 85027; 87070; 87075; 87205; 88112; 89050; 97110; 97116; 97161; 97165; 97530; 97535; G0378; J0131; J0690; J2250; J2405; J2704; J2795; J3370; J7030

== ENCOUNTER → 2022-05-08 13:49 | Outpatient (BNVA) | payer MEDICARE, OTHER, SELFPAY | PROVIDERS: PCP Family Medicine; Visit Provider Nurse Practitioner Family | DX: R89.9 Unspecified abnormal finding in specimens from other organs, systems and tissues (principal) | CPT/HCPCS: 99213 ==

== ENCOUNTER 2022-05-15 17:34 | Inpatient (IN) | payer MEDICARE, OTHER, SELFPAY ==
[2022-05-14 11:21] VITALS: BMI 36.6
[2022-05-15] VITALS (9 sets, daily range): BP systolic 93–153; BP diastolic 63–79; PULSE 54–68; RESP 10–25; TEMP 36.6; O2SAT 95–97
[2022-05-15] MEDS: acetaminophen 1,000 MG/100 ML PIGGYBACK 400 MG IV ×2 (09:15→19:30)
[2022-05-15] MEDS: sodium chloride 0.9% 1,000 ML 30 ML IV (09:15)
[2022-05-15 09:19] LABS: Glucose Point of Care 107 mg/dL (70-110)
--- NOTE | 2022-05-15 12:12 | P.ANESUD_ITS ---
Pre-Anesthetic Update Pre-Anesthetic Assessment: Date of Surgery/Procedure: 05/15/22 Preop Malou gnosis: Primary osteoarthritis right knee Proposed Procedure: Operation Date: 05/15/22 10:30 Proposed Procedures p RIGHT TOTAL KNEE ARTHROPLASTY WITH AARON GUIDANCE 85729,M17.10(Right) - Crystal Le MD Any changes to Pre-Anesthetic Assessment?: No Last Intake: Intake Last Liquid Date 05/14/22 Last Liquid Time 21:00 Last Solid Date 05/14/22 Last Solid Time 19:30 Vitals: Temperature 97.8 F 05/15/22 08:58 Temperature Source Temporal Artery S can 05/15/22 08:58 Pulse Rate 68 05/15/22 08:58 Respiratory Rate 16 05/15/22 08:58 Blood Pressure 135/78 05/15/22 08:58 Blood Pressure Prerna n 97 05/15/22 08:58 Pulse Oximetry 97 05/15/22 08:58 Oxygen Delivery Me thod 05/15/22 08:58 Exam: Pre-Anes Outpt Exam: alert, oriented x 3, clear to auscultation bilaterally and regular rate & rhythm Cardiac Studies: No Data to Display
--- NOTE | 2022-05-15 12:13 | P.ANESUD_ITS ---
Pre-Anesthetic Update Pre-Anesthetic Assessment: Date of Surgery/Procedure: 05/15/22 Preop Malou gnosis: Primary osteoarthritis right knee Proposed Procedure: Operation Date: 05/15/22 10:30 Proposed Procedures p RIGHT TOTAL KNEE ARTHROPLASTY WITH AARON GUIDANCE 22574,M17.10(Right) - Crystal Le MD Any changes to Pre-Anesthetic Assessment?: No Last Intake: Intake Last Liquid Date 05/14/22 Last Liquid Time 21:00 Last Solid Date 05/14/22 Last Solid Time 19:30 Vitals: Temperature 97.8 F 05/15/22 08:58 Temperature Source Temporal Artery S can 05/15/22 08:58 Pulse Rate 68 05/15/22 08:58 Respiratory Rate 16 05/15/22 08:58 Blood Pressure 135/78 05/15/22 08:58 Blood Pressure Prerna n 97 05/15/22 08:58 Pulse Oximetry 97 05/15/22 08:58 Oxygen Delivery Me thod 05/15/22 08:58 Exam: Pre-Anes Outpt Exam: alert, oriented x 3, clear to auscultation bilaterally and regular rate & rhythm Cardiac Studies: No Data to Display
--- NOTE | 2022-05-15 12:50 | P.HPUD_ITS ---
Surgery/Procedure H&P Update DATE OF PROCEDURE: May 15, 2022 DATE H&P PERFORMED: 05/08/22 H&P UPDATE INFORMATION: I have reviewed H&P completed within last 30 days, I have examined patient prior to procedure, No changes to prior documentation and H&P is in [facility] EMR on date indicated PREOP DIAGNOSIS: Primary osteoarthritis right knee PLANNED PROCEDURE: Operation Date: 05/15/22 10:30 Proposed Procedures p RIGHT TOTAL KNEE ARTHROPLASTY WITH AARON GUIDANCE 49411,M17.10(Right) - Crystal Le MD Related Problem List Diagnoses (1) Osteoarthritis of right knee: Qualifiers: Osteoarthritis type: primary Qualified Code(s): M17.11 - Unilateral primary osteoarthritis, right knee (2) Abnormal synovial fluid:
[2022-05-15] MEDS: ceFAZolin 2,000 MG in sodium chloride 0.9% (plus) 50 ML 100 MG IV ×2 (14:16→22:08)
[2022-05-15] MEDS: tranexamic acid 1,000 mg/10mL SDV 1000 MG IV ×2 (15:00→16:38)
[2022-05-15] MEDS: vancomycin 1,000 MG SDV 1000 MG XX (15:31)
[2022-05-15] MEDS: ceFAZolin 1,000 mg SDV 2000 MG IRRIGATION (15:32)
--- NOTE | 2022-05-15 17:31 | XRR_ITS ---
PROCEDURE INFORMATION: Exam: XR Right Knee Exam date and time: 05/15/2022 5:40 PM Age: 67 years old Clinical indication: Pain; Knee; Right; Prior surgery; Surgery date: Post-operative (0-2 days); Additional info: S/P tka right TECHNIQUE: Imaging protocol: Radiologic exam of the Right knee. Views: 1 or 2 views. COMPARISON: CR XR knees AP WB w BI lmt ORTH 04/09/2022 2:20 PM FINDINGS: Tubes, catheters and devices: There is a right total knee replacement with prosthetic components in anatomic alignment. Bones/joints: No acute fracture is demonstrated. There is air within the knee joint and soft tissues related to recent surgery. Soft tissues: There are skin clips on the skin anteriorly consistent with recent surgery. XR/XR knee RT 1-2V [id number] IMPRESSION: Right knee replacement.
--- NOTE | 2022-05-15 17:49 | P.OP_ITS ---
Operative Report Date of procedure: May 15, 2022 Pre-op diagnosis: Primary osteoarthritis right knee Post-op diagnosis: Primary osteoarthritis right knee Post-op findings: Severe degenerative osteoarthritis right knee with varus deformity and slight flexion contracture Procedure done: Right total knee arthroplasty with Abhishek guidance Implants: The [employer] total knee system with a size 4 triathlon beaded cruciate retaining femur right, a triathlon titanium tibial component size 3 beaded, a triathlon X3 tibial bearing CS insert size 3 X 11 mm and a beaded triathlon titanium asymmetric patella size 29 x 9 mm Pathology: none sent Surgeon: Crystal Le Field Project Manager: [employer] [facility] operating room [facility] Anesthesia: MAC (With spinal, ASA 3) Estimated blood loss (mL): 75 Tourniquet time (min): 85 (At 250 mmHg) IV fluids (mL): 1,000 Urine output (mL): 200 Complications: None Findings: Severe osteoarthritis of the right knee with flexion contracture and varus deformity.? Large osteophytes and significant knee effusion. Condition: stable Disposition: PACU (Then discharged to floor for postoperative rehabilitation and pain management) Brief History: Latasha Rodriguez is a new 66 year old female patient who is here today due to bi lateral knee pain.? Patient states pain has been present for 2 years. Pain inhibits patient from being able to: walking long distances, standing long periods of time, up/down stairs, bending, pain wakes her at night. Patient states right is worse than left.? Patient presented today for right total knee arthroplasty. The patient was seen approximately 2 weeks ago and upon opening the knee for operative intervention, the synovial fluid appeared abnormal, and pathology was sent at that time. Recommendation of the pathologist was that we wait for cultures. I was in agreement with this plan. Procedure: The patient was brought to the operating theater, and after undergoing spinal anesthesia with supplemental MAC, as well as an adductor canal block, ASA 3, the right lower extremity was prepped with Dura-Prep and draped in usual fashion following placement of a tourniquet high on the leg. The leg was then draped free. Following prepping and draping, the leg was exsanguinated, and the tourniquet was elevated to 250 mmHg for a total tourniquet time of 85 minutes.? Prior to elevation of the tourniquet, but following exposure of the site of surgery, a surgical pause was performed. At the time of the surgical pause, we confirmed the site and side of surgery. Additionally, we confirmed the appropriate and timely administration of preoperative antibiotics, Ancef 2 g and Transexemic acid 1 g.? The availability of equipment was confirmed, and the patient's identity was verbalized as well.? An additional transexemic acid 1 g was given at the end of the surgical procedure as well. Following the surgical pause, an incision was made centering over the patella continuing proximally and distally as necessary to allow access to the knee alvin int. This was a reentry of the patient's previous incision, and sutures that were present were removed. Dissection continued through skin and soft tissues using a scalpel. Hemostasis was obtained using electrocautery. The skin incision was followed by a median parapatellar arthrotomy. The leg was extended and the patella was able to be displaced laterally.? Appropriate arrays and markers were placed in appropriate position for use of the Abhishek.? Preoperative planning had been accomplished and was discussed in detail with the [facility] traffic workforce representative.? Intraoperative mapping of the femur and tibia was accomplished after the arrays were placed.? Internal markers were also placed.? Once we had accomplished the Abhishek mapping, we began the appropriate resections for placement of the prosthesis.? The plan was for a cruciate retaining right total knee arthroplasty. Once appropriate mapping had been accomplished retraction was established using manual retraction by surgical technicians and also the Abhishek leg positioner and retractors.? The knee was evaluated.? There was a significant osteoarthritic change.? Appropriate bone resection was accomplished using the Abhishek.? The femur was sized to a size 4.? Following femoral cuts, attention was directed to the tibia.? Osteophytes were removed prior to this portion of the procedure.? We had performed a minimal medial release at the beginning of the procedure to allow for placement of the array.? Proximal tibia was evaluated and it was felt that appropriate size for the tibia was a size 3. A trial reduction was accomplished after osteophytes have been removed as well as the medial and lateral menisci.? We had removed the anterior cruciate ligament at the beginning of the case and preserved the posterior cruciate ligament.? Medial release had been accomplished as well.? Trial reduction was accomplished with a size 4 femoral cruciate retaining component and a size 3 CS tibial bearing insert which was 11 mm in thickness which gave excellent varus valgus stability and full extension.? Alignment was felt to be appropriate as well.? As the patient had a varus deformity as well as flexion contracture preoperatively, soft tissue releases were accomplished.? Posterior release was also accomplished.? Trial components were removed after the femur had been drilled.? Prior to removal of the tibial tray which had been pinned in position with appropriate rotation as determined by the Abhishek plan, we broached the tibia.? Subsequently, the 4 drill holes were made for the prosthetic component.? All trial components were removed, and the wound was irrigated.? Plans were made for insertion of the prosthetic components.? Prior to this, the patella was manually prepared.? After resection of the articular surface with the jogging system, it was measured and measured a 29 mm x 9 mm patella.? We resected approximately 9 mm of patella and patellar height was restored with the patellar component. Once again, the wound was irrigated.? The Tritanium tibia was impacted into position.? The beaded femur was then impacted into position in a cementless fashion. The CS tibial insert was placed prior to placement of the femoral component. The patella was pressed into position with a patellar clamp.? Exparel was injected about the components deep and superficially.? The knee was then copiously irrigated with betadine and saline and suctioned dry. Attention was then directed to closure. Closure was accomplished with 0 Vicryl in the fascial tissues.? This was followed by Surgiflo and vancomycin powder.? Following this, a 2-0 Monocryl was used in the subcutaneous tissues, and the skin was closed with skin dayne.? Care was taken to assure an excellent subcutaneous as well as skin closure.? A sterile dressing was then placed consisting of Dermabond Prineo, OpSite, sterile soft roll including over the foot, and an Dakota wrap. The patient was returned the Recovery Room in a satisfactory condition. X-rays were obtained and reviewed there.? The patient will be discharged to the floor for postoperative rehabilitation and pain management. Related Problem List Diagnoses (1) Osteoarthritis of right knee: (2) Abnormal synovial fluid:
--- NOTE | 2022-05-15 17:54 | ANES.PROC ---
Anesthesia Procedures Procedure/Date: 05/15/22 Nerve Block ^: Nerve Block 1: Main Anesthesia: spinal anesthesia block Time Out Performed: Yes Consent: from patient, risks and benefits reviewed and patient agrees to proceed Nerve block location: adductor canal (right) Anesthesia monitors applied: pulse oximetry, EKG, BP cuff and oxygen Nerve block position: supine Anesthetic Used: ropivicaine 0.5% Amount of anesthesia used (mL): 20 Ultrasound used to: recognize landmarks Nerve Stimulator Used?: No Interscalene/Femoral BLK: 4 stimuplex 21 g needle used for position and inplane approach Injection: neg aspiration of heme Patient Tolerated Procedure: well Complications: none
--- NOTE | 2022-05-15 17:55 | ANE.PACU2 ---
Inpatient post-anesthesia follow up: Airway intact: Yes Vital signs: Temperature 97.8 F Pulse Rate 68 Respiratory Rate 16 Blood Pressure 135/78 Pulse Oximetry 97 Oxygen Delivery Me thod Room Air Oxygen Flow Rate Fraction of Inspir ed Oxygen Hydration adequate: Yes Nausea and vomiting: No Pain level: 1 Mental status: Baseline
[2022-05-15] MEDS: sennosides-docusate Tablet 2 TAB PO (19:33)
[2022-05-15] MEDS: hydroxychloroquine 200 mg Tablet PO (19:33)
[2022-05-15] MEDS: iron polysaccharide complex 150 mg Capsule PO (19:33)
[2022-05-15] MEDS: CELEcoxib 200 mg Capsule PO (19:33)
[2022-05-15] MEDS: calcium carbonate 500 mg Chew Tablet 1000 MG PO (19:34)
[2022-05-15] MEDS: pregabalin 100 mg Capsule PO (19:34)
[2022-05-15] MEDS: HYDROcodone-acetaminophen 7.5-325 mg Tablet 1 TAB PO (19:59)
[2022-05-15] MEDS: levothyroxine 100 mcg Tablet PO (20:44)
[2022-05-15] MEDS: atorvastatin 40 mg Tablet 20 MG PO (20:44)
[2022-05-15] MEDS: chlorhexidine gluconate 0.12% Btl 473 mL 30 ML MUCOUS MEM (20:46)
[2022-05-16] VITALS (10 sets, daily range): BP systolic 64–120; BP diastolic 34–74; PULSE 62–75; RESP 17–18; TEMP 36.6–37.4; O2SAT 92–97
[2022-05-16] MEDS: HYDROcodone-acetaminophen 7.5-325 mg Tablet 1 TAB PO ×4 (02:14→20:20)
[2022-05-16] MEDS: acetaminophen 1,000 MG/100 ML PIGGYBACK 400 MG IV ×2 (03:05→09:41)
[2022-05-16 05:57] LABS: Basophils # 0.1 10^3/uL (0.0-0.1); Basophils % 0.6 %; Eosinophils # 0.3 10^3/uL (0.0-0.8); Eosinophils % 2.9 %; Hematocrit 36.3 % (37.0-47.0); Hemoglobin 11.8 g/dL (11.5-15.3); Lymphocytes # 1.9 10^3/uL (0.8-4.8); Lymphocytes % 19.7 %; Mean Corpuscular HGB Conc 32.5 g/dL (30.0-36.0); Mean Corpuscular Hemoglobin 29.9 pg (28.0-34.0); Mean Corpuscular Volume 91.9 fl (81-99); Mean Platelet Volume 10.3 fL (7.4-10.4); Monocytes # 0.9 10^3/uL (0.2-0.9); Monocytes % 9.2 %; Neutrophils % 67.4 %; Nucleated Red Blood Cells % 0 %; Platelet Count 269 10^3/cmm (130-400); Red Blood Count 3.95 10^6/uL (4.1-5.3); Red Cell Distribution Width 13.4 % (12.1-15.1); White Blood Count 9.5 10^3/uL (4.0-10.0)
[2022-05-16 06:16] LABS: Anion Gap 14.1 (5-19); Blood Urea Nitrogen 13 mg/dL (8-23); Calcium 8.6 mg/dL (8.5-10.5); Carbon Dioxide 26 mmol/L (22-29); Chloride 103 mmol/L (98-107); Creatinine Clr Calc Pharmacy 72.4521; Glomerular Filtration Rate 83.7 mL/min (90-130); Glucose 108 mg/dL (65-115); Osmolality Calculated 289 mOsm/kg (285-295); Potassium 4.1 mmol/L (3.5-5.1); Sodium 139 mmol/L (136-145)
[2022-05-16] MEDS: ceFAZolin 2,000 MG in sodium chloride 0.9% (plus) 50 ML 100 MG IV ×2 (06:40→14:12)
[2022-05-16] MEDS: CELEcoxib 200 mg Capsule PO ×2 (06:41→18:06)
[2022-05-16 07:32] LABS: Add Urine Microscopic? YES; Bilirubin Urine Neg (Negative); Blood Urine 2+ (Negative); Glucose Urine UA Norm (Normal); Ketones Urine Negative (Negative); Leukocyte Esterase Urine Negative (Negative); Nitrate Urine Negative (Negative); Protein Urine Neg (Negative); Urine Appearance Clear (CLEAR); Urine Color Straw (Yellow); Urobilinogen Urine Neg (Negative); pH Urine 5 (5-7)
[2022-05-16 07:33] LABS: Add Urine Culture? No; Bacteria Urine 1+ /hpf; Squamous Epithelial Cell Urine 0-4 /hpf (0-5)
[2022-05-16] MEDS: hydroxychloroquine 200 mg Tablet PO ×2 (09:37→18:07)
[2022-05-16] MEDS: cholecalciferol (vitamin D3) 1,000 unit Tablet 1000 UNIT PO (09:37)
[2022-05-16] MEDS: multivitamin therapeutic Tablet 1 TAB PO (09:37)
[2022-05-16] MEDS: aspirin 325 mg EC Tablet PO (09:37)
[2022-05-16] MEDS: sennosides-docusate Tablet 2 TAB PO ×2 (09:38→18:07)
[2022-05-16] MEDS: iron polysaccharide complex 150 mg Capsule PO ×2 (09:38→18:07)
[2022-05-16] MEDS: pregabalin 100 mg Capsule PO ×2 (09:38→18:06)
[2022-05-16] MEDS: calcium carbonate 500 mg Chew Tablet 1000 MG PO ×2 (09:38→18:07)
[2022-05-16] MEDS: chlorhexidine gluconate 0.12% Btl 473 mL 30 ML MUCOUS MEM ×3 (09:40→20:21)
[2022-05-16] MEDS: sodium chloride 0.9% 500 ML 999 ML IV (13:44)
--- NOTE | 2022-05-16 17:39 | P.PN_ITS ---
Subjective Subjective: Patient is seen in her room following right total knee arthroplasty with Abhishek guidance which was performed yesterday. She has worked well with physical therapy, but her blood pressure has been soft. She has had episodic hypotension, and will require a fluid bolus as well as ongoing in- hospital monitoring. It is felt that she is not safe for discharge to home. Medications: Reviewed: Yes Vitals/I&O/Wt Last Vital Signs Temp 98.1 F 05/16/22 12:13 Pulse 72 05/16/22 12:13 Resp 17 05/16/22 12:13 BP 106/66 05/16/22 13:59 Pulse Ox 96 05/16/22 12:13 O2 Del Method 05/16/22 12:13 05/16/22 05/16/22 05/16/22 06:59 14:59 22:59 Intake Total 460 / 3050 1900 / 1900 Output Total 700 / 1375 400 / 400 Balance -240 / 1675 1500 / 1500 Physical Exam Const: COMMON NORMALS: no acute distress, average body habitus, patient oriented x3 and alert GENERAL APPEARANCE: cooperative and comfortable ORIENTATION/CONSCIOUSNESS: Yes awake HENMT: COMMON NORMALS: normocephalic and atraumatic HEAD & SCALP: normocephalic and atraumatic Eye: GENERAL EYE: appearance normal, both eyes and all related structures Chest: COMMONS NORMALS: normal inspection of the chest Resp: COMMON NORMALS: normal respiratory effort EFFORT & INSPECTION: Yes able to speak in complete sentences and Yes symmetric chest movement Extremity: RIGHT LOWER EXTREMITY: Yes knee joint (Outer dressing is removed. There is no significant swelling. ) Right knee: Yes inspection (No significant bleeding.), Yes palpation (Calf soft and nontender.), Yes ROM (Nearly able to straight leg raise.) and Yes neurovascular exam (Intact distally with no evidence of DVT.) Neuro: COMMON NORMALS: patient oriented x3 SENSORIUM/ORIENTATION: Yes alert Psych: COMMON NORMALS: mental status grossly normal APPEARANCE: Yes grossly normal ATTITUDE: Yes calm and Yes engaged ATTENTION/CONCENTRATION: Yes attention grossly intact Skin: COMMON NORMALS: no rashes or lesions noted GENERAL SKIN EXAM: no rashes or lesions noted Urinary Catheter Management: Trinidad: Cath Placed During This Visit: yes, but has since been removed by the nurse Reason for Continuing Indwelling Catheter: Decision to DC Catheter Urinary Catheter Date of Insertion: 05/15/22 Urinary Catheter Time of Insertion: 14:50 Date Urinary Catheter Removed: 05/16/22 Time Urinary Catheter Discontinued: 06:20 Data 05/16/22 05:39 05/16/22 05:39 A&P Assessment and plan (1) Status post total right knee replacement not using cement: Patient is following arthroplasty. She is nearly able to straight leg raise. She has had episodic hypotension today. She is Following this. She is to spend the night with this to following follow her blood pressure issues as it is felt she is not safe for discharge to home. Otherwise, she is doing well with therapies. She has been up and working. Plan is for discharge home with home health. (2) Osteoarthritis of right knee: Qualifiers: Osteoarthritis type: primary Qualified Code(s): M17.11 - Unilateral primary osteoarthritis, right knee (3) Abnormal synovial fluid: Attestations Medical Necessity Statement*: Ongoing care for monitoring of pain and hypotension following total knee arthroplasty. Coding Level of Care Code Acute Code for Chg Fwd Diagnoses Status post total right knee replacement not using cement Z96.651 Osteoarthritis of right knee M17.11 Osteoarthritis type: primary Abnormal synovial fluid R89.9
[2022-05-16] MEDS: acetaminophen 500 mg Tablet 1000 MG PO (18:07)
[2022-05-16] MEDS: atorvastatin 40 mg Tablet 20 MG PO (20:20)
[2022-05-16] MEDS: levothyroxine 100 mcg Tablet PO (20:20)
[2022-05-17] MEDS: acetaminophen 500 mg Tablet 1000 MG PO (01:52)
[2022-05-17] MEDS: HYDROcodone-acetaminophen 7.5-325 mg Tablet 1 TAB PO (03:56)
[2022-05-17] MEDS: CELEcoxib 200 mg Capsule PO (06:40)
[2022-05-17 08:37] VITALS: BP 97/61; PULSE 74; RESP 18; TEMP 36.7; O2SAT 93
[2022-05-17] MEDS: calcium carbonate 500 mg Chew Tablet 1000 MG PO (09:49)
[2022-05-17] MEDS: pregabalin 100 mg Capsule PO (09:49)
[2022-05-17] MEDS: hydroxychloroquine 200 mg Tablet PO (09:49)
[2022-05-17] MEDS: aspirin 325 mg EC Tablet PO (09:49)
[2022-05-17] MEDS: iron polysaccharide complex 150 mg Capsule PO (09:49)
[2022-05-17] MEDS: multivitamin therapeutic Tablet 1 TAB PO (09:49)
[2022-05-17] MEDS: cholecalciferol (vitamin D3) 1,000 unit Tablet 1000 UNIT PO (09:49)
[2022-05-17] MEDS: chlorhexidine gluconate 0.12% Btl 473 mL 30 ML MUCOUS MEM (09:50)
[2022-05-17] MEDS: mupirocin oint 22 gm 1 APPLIC NASAL (09:50)
[2022-05-17 12:18] VITALS: BP 91/55; PULSE 67; RESP 18; TEMP 36.6; O2SAT 96
--- NOTE | 2022-05-17 12:32 | PC.CHAP ---
Pastoral Care Encounter/Spiritual Assessment Type of Contact [] Declined medical front desk specialist visit [] Patient/Family/Request visit [] Outpatient visit [] Follow-up visit [] Physician referral [] Code/Alert [x] Routine visit [] Staff referral [] Actively dying [] Patient sleeping [] Family support [] [] Out of room [] Palliative care [] [x] Receiving care in room [] Pre-surgical visit [] Trauma [] Long length of stay [] ICU visit [] Other: Relational/Emotional Strength [x] Patient feels connected with others/family/visitors/staff [] Distress [] Loneliness/isolation [] Abandonment Spirituality of Patient [x] Person of Rosio [x] Attends Anglican of their Rosio [x] Believes in Prayer [] Reads Bible or Hinduism materials [] There are Spiritual issues to be addressed 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 Interventions [x] Prayer [x] Active listening [x] Non-anxious presence [x] Spiritual/emotional support [] Crisis/trauma care [x] Spiritual counseling [] Bereavement support [] Provided bereavement packet [] Provided Bible/devotional materials [] Provided toy/stuffed animal, coloring book to patient or family member [] Provided Communion [] Anointing/[place] [] Salvation [x] Completed spiritual assessment [] Other: Impact on Illness or Injury [] Angry [] Fearful [] Anxious [] Often cries [] Exhaustion [] Unable to work [] Unable to attend mu-ism [] Unable to walk/stand [] Unable to read [] Unable to drive [] Unable to eat/drink [] Unable to sleep [] Unable to be with family [] Patient intubated [] Other: Summary feeling better had folds draned has good attitude is going home Time spent with patient 10 mins
[2022-05-17 12:42] VITALS: BP 108/73
--- NOTE | 2022-05-17 13:30 | P.DS_ITS ---
Discharge Providers Date of Admission: 05/16/22 18:00 Date of Discharge: May 17, 2022 Attending Provider at Admission: Crystal Le MD Attending Provider at Discharge: Crystal Le MD Primary Care Provider: Rose Greer DO Diagnoses at Discharge Discharge Diagnosis (1) Status post total right knee replacement not using cement: Status: Acute Permanent problem details: Date of procedure: May 15, 2022 Diagnosis: Primary osteoarthritis right knee Post-op findings: Severe degenerative osteoarthritis right knee with varus deformity and slight flexion contracture Procedure done: Right total knee arthroplasty with Abhishek guidance Implants: The [facility] total knee system with a size 4 triathlon beaded cruciate retaining femur right, a triathlon titanium tibial component size 3 beaded, a triathlon X3 tibial bearing CS insert size 3 X 11 mm and a beaded triathlon titanium asymmetric patella size 29 x 9 mm (2) Osteoarthritis of right knee: Status: Acute Qualifiers: Osteoarthritis type: primary Qualified Code(s): M17.11 - Unilateral primary osteoarthritis, right knee (3) Abnormal synovial fluid: Status: Resolved Reason for Visit Reason for Visit: Unilateral primary osteoarthritis, unspecified thor Brief History: Latasha Rodriguez is a 66 year old female patient who was initially seen secondary to bilateral knee pain.? Patient states pain has been present for 2 years. Pain inhibits patient from being able to: walking long distances, standing long periods of time, up/down stairs, bending, pain wakes her at night. Patient states right is worse than left.? Patient presented today for right total knee arthroplasty.? The patient was seen approximately 2 weeks ago and upon opening the knee for operative intervention, the synovial fluid appeared abnormal, and pathology was sent at that time.? Recommendation of the pathologist was that we wait for cultures.? I was in agreement with this plan. Hospital Course Hospital Course This 66-year-old woman was admitted for same-day surgery in the form of medical assisted right total knee arthroplasty. The procedure was well-tolerated. The patient was seen on the first postoperative day. She had no complications and was doing well. She was suffering, however, with orthostatic hypotension, and it was not felt safe to discharge her home. She was therefore maintained in the hospital for an additional day, and she was given a fluid bolus of 500 cc of normal saline. On the second postoperative day, the patient was seen and she was doing well with therapy. She had no further episodes of hypotension. She was felt to be safe for discharge to home. Physical Exam Const: COMMON NORMALS: no acute distress, average body habitus, patient oriented x3 and alert GENERAL APPEARANCE: cooperative and comfortable ORIENTATION/CONSCIOUSNESS: Yes awake HENMT: COMMON NORMALS: normocephalic and atraumatic HEAD & SCALP: normocephalic and atraumatic Eye: GENERAL EYE: appearance normal, both eyes and all related structures Chest: COMMONS NORMALS: normal inspection of the chest Resp: COMMON NORMALS: normal respiratory effort EFFORT & INSPECTION: Yes able to speak in complete sentences and Yes symmetric chest movement Extremity: RIGHT LOWER EXTREMITY: Yes knee joint Right knee: Yes inspection (No evidence of DVT. No bruising.), Yes palpation (Minimal to no tenderness.), Yes ROM (Able to straight leg raise.) and Yes neurovascular exam (Intact distally.) Neuro: COMMON NORMALS: patient oriented x3 SENSORIUM/ORIENTATION: Yes alert Psych: COMMON NORMALS: mental status grossly normal APPEARANCE: Yes grossly normal ATTITUDE: Yes calm and Yes engaged ATTENTION/CONCENTRATION: Yes att ention grossly intact Skin: COMMON NORMALS: no rashes or lesions noted GENERAL SKIN EXAM: no rashes or lesions noted Urinary Catheter Management: Trin[place]: Cath Placed During This Visit: yes, but has since been removed by the nurse Reason for Continuing Indwelling Catheter: Decision to DC Catheter Urinary Catheter Date of Insertion: 05/15/22 Urinary Catheter Time of Insertion: 14:50 Date Urinary Catheter Removed: 05/16/22 Time Urinary Catheter Discontinued: 06:20 Discharge Data Studies Completed and Pending Completed Studies During Hospitalization Category Date Time Status XR knee RT 1-2V [id number] Routine Exams 05/15/22 17:31 Completed Radiology Impressions Knee X-Ray 05/15/22 17:31 IMPRESSION: Right knee replacement. Laboratory Results WBC 9.5 10^3/uL (4.0-10.0) 05/16/22 05:39 RBC 3.95 10^6/uL (4.1-5.3) L 05/16/22 05:39 Hgb 11.8 g/dL (11.5-15.3) 05/16/22 05:39 Hct 36.3 % (37.0-47.0) L 05/16/22 05:39 MCV 91.9 fl (81-99) 05/16/22 05:39 MCH 29.9 pg (28.0-34.0) 05/16/22 05:39 MCHC 32.5 g/dL (30.0-36.0) 05/16/22 05:39 RDW 13.4 % (12.1-15.1) 05/16/22 05:39 Plt Count 269 10^3/cmm (130-400) 05/16/22 05:39 MPV 10.3 fL (7.4-10.4) 05/16/22 05:39 Neut % (Auto) 67.4 % 05/16/22 05:39 Lymph % (Auto) 19.7 % 05/16/22 05:39 Titus % (Auto) 9.2 % 05/16/22 05:39 Eos % (Auto) 2.9 % 05/16/22 05:39 Baso % (Auto) 0.6 % 05/16/22 05:39 Neut # (Auto) 6.40 10^3/uL (1.8-7.7) 05/16/22 05:39 Lymph # (Auto) 1.9 10^3/uL (0.8-4.8) 05/16/22 05:39 Titus # (Auto) 0.9 10^3/uL (0.2-0.9) 05/16/22 05:39 Eos # (Auto) 0.3 10^3/uL (0.0-0.8) 05/16/22 05:39 Baso # (Auto) 0.1 10^3/uL (0.0-0.1) 05/16/22 05:39 Nucleated RBC % (auto) 0 % 05/16/22 05:39 Nucleated RBCs # 0.0 /100WBC 05/16/22 05:39 Sodium 139 mmol/L (136-145) 05/16/22 05:39 Potassium 4.1 mmol/L (3.5-5.1) 05/16/22 05:39 Chloride 103 mmol/L (98-107) 05/16/22 05:39 Carbon Dioxide 26 mmol/L (22-29) 05/16/22 05:39 Anion Gap 14.1 (5-19) 05/16/22 05:39 BUN 13 mg/dL (8-23) 05/16/22 05:39 Creatinine 0.7 mg/dL (0.5-0.9) 05/16/22 05:39 GFR Calculation 83.7 mL/min (90-130) L 05/16/22 05:39 Glucose 108 mg/dL (65-115) 05/16/22 05:39 POC Glucose 107 mg/dL (70-110) 05/15/22 09:12 Calculated Osmolality 289 mOsm/kg (285-295) 05/16/22 05:39 Calcium 8.6 mg/dL (8.5-10.5) 05/16/22 05:39 Urine Color Straw (Yellow) 05/16/22 06:45 Urine Appearance Clear (CLEAR) 05/16/22 06:45 Urine pH 5 (5-7) 05/16/22 06:45 Ur Specific [place] 1.010 (1.005-1.030) 05/16/22 06:45 Urine Protein Neg (Negative) 05/16/22 06:45 Urine Glucose (UA) Norm (Normal) 05/16/22 06:45 Urine Ketones Negative (Negative) 05/16/22 06:45 Urine Blood 2+ (Negative) H 05/16/22 06:45 Urine Nitrate Negative (Negative) 05/16/22 06:45 Urine Bilirubin Neg (Negative) 05/16/22 06:45 Urine Urobilinogen Neg mg/dL (Negative) 05/16/22 06:45 Ur Leukocyte Esterase Negative (Negative) 05/16/22 06:45 Urine RBC 5-10 /hpf (0-2) H 05/16/22 06:45 Urine WBC None /hpf (0-5) 05/16/22 06:45 Ur Squamous Epith Cells 0-4 /hpf (0-5) H 05/16/22 06:45 Amorphous Sediment Not Reportable 05/16/22 06:45 Urine Bacteria 1+ /hpf (NONE) H 05/16/22 06:45 Vitals Last Vital Signs Temp 97.9 F 05/17/22 12:18 Pulse 67 05/17/22 12:18 Resp 18 05/17/22 12:18 BP 108/73 05/17/22 12:42 Pulse Ox 96 05/17/22 12:18 O2 Del Method 05/17/22 12:18 Discharge Plan Discharge Patient Disposition: Home Health Service Condition: Stable Prescriptions: New celecoxib 200 mg Capsule 200 mg PO Q12H 30 Days Qty: 60 0RF aspirin 325 mg Tablet,Delayed Release (Dr/Ec) 325 mg PO DAILY 30 Days Qty: 0 0RF hydrocodone-acetaminophen 7.5-325 mg Tablet 1 tab PO Q4H PRN (Reason: Moderate Pain) 7 Days Qty: 20 0RF Continued folic acid 1 mg tablet 1 mg PO DAILY cholecalciferol (vitamin D3) [Vitamin D3] 25 mcg (1,000 unit) Capsule 50 mcg PO DAILY levothyroxine 100 mcg capsule 100 mcg PO BEDTIME atorvastatin 10 mg tablet 10 mg PO BEDTIME pregabalin 100 mg capsule 100 mg PO BID Rx Instructions: TAKES 1 IN THE MORNING AND 2 AT NIGHT Held Humira(CF) Pen 40 mg/0.4 mL pen injector kit 40 mg SUBCUT Q14D Hold Instructions: Resume on 05/28/22. Rx Instructions: start on day 29 of therapy hydroxychloroquine 200 mg tablet 200 mg PO BID Hold Instructions: Resume on 05/28/22. methotrexate sodium 2.5 mg tablet 20 mg PO .WEEKLY Hold Instructions: Resume on 05/28/22. Discharge Orders: Discharge Order (Routine); Ordered 05/17/22 Ordered By: Crystal Le Referrals: [facility] ([facility]) [Outside] Crystal Le MD [Physician] - 05/30/22 10:15 am Discharge Diet: Advance as tolerated and Usual diet Discharge Activity: Increase activity as tolerated, Limit activity as instructed, Use walker/crutches as instructed and As per PT/OT instructions Patient Instructions: Hydrocodone/Acetaminophen (By mouth), Celecoxib (By mouth), Joint Replacement Surgery (GEN), Knee Replacement (DC), Joint Replacement Stoplight, Opioid Safety Activity Restrictions/Additional Instructions: Home physical therapy for range of motion and strengthening. Ambulation weightbearing as tolerated. Ice and elevate right knee. You may shower but keep clear plastic dressing over right knee. Discharge Attestations Time Spent in Discharge Care*: greater than 30 min Specific Discharge Activities: educating patient, educating and/or supporting family/caregiver, documenting/other paperwork and evaluating patient/reviewing [facility] Quality Metrics Clinical Quality Measures [ No reported AMI, CVA or VTE this stay] Coding Level of Care Code Acute Code for Chg Fwd Diagnoses Status post total right knee replacement not using cement Z96.651 Osteoarthritis of right knee M17.11 Osteoarthritis type: primary Abnormal synovial fluid R89.9
== END 2022-05-17 15:01 | disposition home health service (06) | DRG 470 ==
LOC: MEDSURG 17:34
PROVIDERS: Admitting Provider Specialist; PCP Family Medicine; Visit Provider Specialist
PROC: 8E0Y0CZ Robotic Assisted Procedure of Lower Extremity, Open Approach (ICD-10-PCS; CPT 27447; principal; 2022-05-15 09:50)
DX: M17.11 Unilateral primary osteoarthritis, right knee (principal); R89.9 Unspecified abnormal finding in specimens from other organs, systems and tissues; Z88.2 Allergy status to sulfonamides; E78.5 Hyperlipidemia, unspecified; E55.9 Vitamin D deficiency, unspecified; E89.0 Postprocedural hypothyroidism; I95.9 Hypotension, unspecified
CPT/HCPCS: 36415; 36416; 51702; 73560; 80048; 81001; 82962; 85025; 97110; 97116; 97161; 97165; 97535; C1776; C9290; G0378; J0131; J0690; J2250; J2704; J2795; J3010; J3370; J3490; J7030; J7040

== ENCOUNTER → 2022-05-30 10:04 | Outpatient (BNVA) | payer MEDICARE, OTHER, SELFPAY | PROVIDERS: PCP Family Medicine; Visit Provider Nurse Practitioner Family | DX: Z96.651 Presence of right artificial knee joint (principal) | CPT/HCPCS: 73560; 73565; 99024 ==

== ENCOUNTER → 2022-06-13 13:19 | Outpatient (BNVA) | payer MEDICARE, OTHER, SELFPAY | PROVIDERS: PCP Family Medicine; Visit Provider Nurse Practitioner Family | DX: L02.91 Cutaneous abscess, unspecified (principal); Z47.89 Encounter for other orthopedic aftercare; Z96.651 Presence of right artificial knee joint | CPT/HCPCS: 87070; 87075; 87077; 87186; 87205; 99024; 99213 ==

== ENCOUNTER → 2022-06-18 09:45 | Outpatient (BNVA) | payer MEDICARE, OTHER, SELFPAY | PROVIDERS: PCP Family Medicine; Visit Provider Specialist | DX: L02.91 Cutaneous abscess, unspecified (principal); Z96.651 Presence of right artificial knee joint | CPT/HCPCS: 82150; 85025; 87070; 87075; 87205; 99214 ==

== ENCOUNTER 2022-06-22 11:00 | Day surgery (SDC) | payer MEDICARE, OTHER, SELFPAY ==
[2022-06-21 09:52] VITALS: BMI 36.7
[2022-06-22 11:16] VITALS: BP 134/68; PULSE 61; RESP 18; TEMP 36.5; O2SAT 96
[2022-06-22] MEDS: acetaminophen 1,000 MG/100 ML PIGGYBACK 400 MG IV (11:28)
[2022-06-22] MEDS: CELEcoxib 200 mg Capsule 400 MG PO (11:29)
[2022-06-22] MEDS: sodium chloride 0.9% 1,000 ML 30 ML IV (12:00)
--- NOTE | 2022-06-22 12:03 | W.PM.OPSUD ---
Surgery/Procedure H&P Update DATE OF PROCEDURE: June 22, 2022 DATE H&P PERFORMED: 06/18/22 H&P UPDATE INFORMATION: I have reviewed H&P completed within last 30 days, I have examined patient prior to procedure, No changes to prior documentation and H&P is in [facility] EMR on date indicated PREOP DIAGNOSIS: Right knee suture abscess PLANNED PROCEDURE: Operation Date: 06/22/22 12:45 Proposed Procedures p RIGHT KNEE RESECTION OR SUPERFICIAL SUTURE ABSCESS 33126, T81.41XA(Right) - Crystal Le MD Related Problem List Diagnoses (1) Abscess involving suture:
--- NOTE | 2022-06-22 12:09 | P.ANESASSM_ITS ---
Pre-Anesthetic Assessment Height/Weight: Height 1.57 m Weight 91.172 kg Temp Pulse Resp BP Pulse Ox O2 Del Method 97.7 F 61 18 134/68 96 06/22/22 11:16 06/22/22 11:16 06/22/22 11:16 06/22/22 11:16 06/22/22 11:16 06/22/22 11:19 Preop Diagnosis: Right knee suture abscess Operation Date: 06/22/22 12:45 Proposed Procedures p RIGHT KNEE RESECTION OR SUPERFICIAL SUTURE ABSCESS 24728, T81.41XA(Right) - Crystal Le MD Familial anesthetic complications: None Was Beta Justin taken within 24 hours: N/A Was Clonidine taken within 24 hours: N/A Last intake: Intake Last Liquid Date 06/20/22 Last Liquid Time 20:00 Last Solid Date 06/20/22 Last Solid Time 20:00 Social No alcohol and No tobacco Exam alert, oriented x 3, clear to auscultation bilaterally and regular rate & rhythm Airway Mallampati: Class II Dentition: false Metabolic Diabetes Mellitus (diet controlled), Hyperlipidemia and Thyroid Disease Anesthetic Plan ASA status: 2 Anesthesia: General Risk of > 500 ml blood loss (7ml/kg in children): No Medications/Allergies Home Medications Medication Instructions Recorded Confirmed Last Taken Type adalimumab 40 mg/0.4 mL 40 mg SUBCUT Q14D 04/03/22 06/21/22 04/27/22 History subcutaneous pen kit (Humira(CF) Pen) folic acid 1 mg tablet 1 mg PO DAILY 04/03/22 06/21/22 06/21/22 History hydroxychloroquine 200 mg tablet 200 mg PO BID 04/03/22 06/21/22 05/09/22 History (Plaquenil) methotrexate sodium 2.5 mg tablet 20 mg PO .WEEKLY 04/03/22 06/21/22 1 Day Ago History ~04/30/22 atorvastatin 10 mg tablet 10 mg PO BEDTIME 04/24/22 06/21/22 06/21/22 History cholecalciferol (vitamin D3) 25 50 mcg PO DAILY 04/24/22 06/21/22 06/21/22 History mcg (1,000 unit) capsule (Vitamin D3) levothyroxine 100 mcg capsule 100 mcg PO BEDTIME 04/24/22 06/21/22 06/21/22 History pregabalin 100 mg capsule (Lyrica) 100 mg PO BID 04/24/22 06/21/22 06/21/22 History doxycycline hyclate 100 mg tablet 100 mg PO BID 10 days #20 tabs 06/13/22 06/21/22 06/21/22 Rx ciprofloxacin HCl 750 mg tablet 750 mg PO BID 10 days #20 tabs 06/18/22 06/21/22 06/21/22 Rx Allergies Allergy/AdvReac Type Severity Reaction Status Date / Time Sulfa (Sulfonamide Allergy Unknown Verified 06/13/22 13:39 Antibiotics) [facility] Anesthesia Medical History Dyslipidemia Inflammatory polyarthropathy Osteoarthritis of right knee Type 2 diabetes mellitus without complications Vitamin D deficiency, unspecified Surgical History H/O thyroidectomy Partial H/O: hysterectomy Total. History of ankle surgery Left History of carpal tunnel surgery Left History of partial adrenalectomy Left - benign History of thumb surgery Left Hx of tonsillectomy Data Anesthesia Cardiac Studies: No Data to Display
[2022-06-22] MEDS: vancomycin 1,250 MG/250 ML PIGGYBACK 250 MG IV (13:06)
[2022-06-22] MEDS: ceFAZolin 1,000 mg SDV 4000 MG IRRIGATION (13:12)
[2022-06-22 13:29] VITALS: BP 126/86; PULSE 63; RESP 16; TEMP 36.3; O2SAT 100
[2022-06-22 13:35] VITALS: BP 139/69; PULSE 56; RESP 16; O2SAT 100
[2022-06-22 13:40] VITALS: BP 136/70; PULSE 58; RESP 16; O2SAT 97
--- NOTE | 2022-06-22 13:42 | ANE.PACU2 ---
Inpatient post-anesthesia follow up: Airway intact: Yes Vital signs: Temperature 97.4 F Pulse Rate 56 Respiratory Rate 16 Blood Pressure 139/69 Pulse Oximetry 100 Oxygen Delivery Me thod Simple Mask Oxygen Flow Rate 6 Fraction of Inspir ed Oxygen Hydration adequate: Yes Nausea and vomiting: No Pain level: 1 Mental status: Baseline
[2022-06-22 13:46] VITALS: BP 141/78; PULSE 59; RESP 18; TEMP 36.3; O2SAT 98
[2022-06-22 13:54] VITALS: BP 131/72; PULSE 60; RESP 18; TEMP 36.2; O2SAT 98
--- NOTE | 2022-06-22 13:58 | PM.OP ---
Operative Report Date of procedure: June 22, 2022 Pre-op diagnosis: Right knee suture abscess Post-op diagnosis: Right knee suture abscess Post-op findings: No evidence of violation of the right total joint arthroplasty or breakdown of suture line Procedure done: Right knee excision suture abscess with irrigation and debridement of prepatellar bursa Specimens removed/disposition: Culture of prepatellar bursa Surgeon: Crystal Le Travel Journalist: [facility] operating [facility] technicians Anesthesia: General (Per LMA, ASA 2) Estimated blood loss (mL): 5 Tourniquet time (min): 0 (No tourniquet utilized) IV fluids (mL): 500 Urine output (mL): 0 (No Trinidad) Complications: None Findings: Inflammation of the synovium of prepatellar bursa Condition: stable Disposition: PACU (Then return to same-day surgery for discharge to home) Brief History: This is a a 67 year old female patient here today for resection of anterior suture abscess over the prepatellar bursa following her Right total knee arthroplasty with Abhishek guidance DOS: 05/15/2022. Patient has completed a round of Keflex, and after follow up with Nurse Practitioner Bhanu [place], she was placed on a second round of antibiotics; however, at that time she was placed on Doxycycline. The patient was seen earlier this week on the , and she felt her knee was improving. Cultures have been obtained at the time of her visit with Bhanu, however, these were superficial cultures. They grew Pseudomonas, so the patient was transferred to the [facility]. At the time she was seen on the , knee aspiration was performed, and the decision was made to proceed with resection of her suture abscess. Questions were answered and consents were signed. Procedure: The patient was brought to the operating theater, and after undergoing adequate general anesthesia per LMA, ASA 2, the right lower extremity was prepped and draped with DuraPrep. The leg was then draped free tourniquet placed high on the leg. This tourniquet, was not elevated, however. A surgical pause was performed. At the time of the surgical pause we confirmed the site and side of surgery as well as the patient's identity and planned procedure. Additionally, we confirmed IV antibiotics were held until cultures could be obtained intraoperatively. Following the surgical pause, an incision was made centering over the patella in the area of the suture abscess. The suture abscess was completely ellipsed from the area as well. Debridement was then accomplished using a rongeur. Cultures were obtained. The prepatellar bursa was palpated to assure that there was no violation of the total knee suture line, and there was no LOC. There was a mild knee effusion, but the knee joint was not entered. After the area was significantly debrided, irrigation was accomplished with 6 L of fluid. The first 3 L of normal saline were plain and the second 3 L contained 1 g of Ancef per liter. Once the knee had been appropriately irrigated and cultures have been obtained prior to irrigation, attention was directed to closure. Closure was accomplished with 0 Ethilon in an interrupted mattress fashion. Following placement of the nylon, Dermabond was placed followed by OpSite. The leg was then wrapped with soft roll and a sterile [place] wrap. She was returned to the recovery room in a satisfactory condition will be discharged home to follow-up with me in the office. Cultures are pending. Related Problem List Diagnoses (1) Abscess involving suture: (2) Status post total right knee replacement not using cement:
[2022-06-22] MEDS: HYDROcodone-acetaminophen 5-325 mg Tablet 1 TAB PO (14:11)
== END 2022-06-22 14:40 | disposition home or self-care (01) ==
PROVIDERS: PCP Family Medicine; Visit Provider Specialist
PROC: (CPT 27340; principal; 2022-06-22 12:35)
DX: T81.41XA Infection following a procedure, superficial incisional surgical site, initial encounter (principal); Y83.8 Other surgical procedures as the cause of abnormal reaction of the patient, or of later complication, without mention of misadventure at the time of the procedure; E11.9 Type 2 diabetes mellitus without complications; E78.5 Hyperlipidemia, unspecified
CPT/HCPCS: 27340; 87070; 87075; 87205; J0131; J0690; J2704; J3010; J3370; J7030

== ENCOUNTER 2022-07-02 10:21 | Outpatient (CLI) | payer MEDICARE, OTHER, SELFPAY | END 2022-07-02 10:22 | disposition home or self-care (01) | LOC: LAB 07-16 06:28 → RAD 07-16 06:31 | PROVIDERS: PCP Family Medicine; Visit Provider Family Medicine | DX: E11.9 Type 2 diabetes mellitus without complications; E78.5 Hyperlipidemia, unspecified; E03.9 Hypothyroidism, unspecified | CPT/HCPCS: 80053; 80061; 82043; 83036; 84439; 84443; 85025 ==

== ENCOUNTER 2022-07-06 06:00 | Outpatient (CLI) | payer MEDICARE, OTHER, SELFPAY | END 2022-07-06 06:01 | disposition home or self-care (01) | LOC: SPT 07-11 12:04 | PROVIDERS: PCP Family Medicine; Visit Provider Nurse Practitioner Family | DX: Z46.89 Encounter for fitting and adjustment of other specified devices (principal); M17.12 Unilateral primary osteoarthritis, left knee | CPT/HCPCS: L1851 ==

== ENCOUNTER 2022-07-06 11:02 | Outpatient (CLI) | payer MEDICARE, SELFPAY ==
[2022-07-06 12:03] LABS: Basophils % 0.7 %; Eosinophils # 0.2 10^3/uL (0.0-0.8); Eosinophils % 2.8 %; Hematocrit 44.8 % (37.0-47.0); Hemoglobin 14.6 g/dL (11.5-15.3); Lymphocytes # 2.4 10^3/uL (0.8-4.8); Lymphocytes % 39.3 %; Mean Corpuscular HGB Conc 32.6 g/dL (30.0-36.0); Mean Corpuscular Volume 89.1 fl (81-99); Mean Platelet Volume 10.6 fL (7.4-10.4); Monocytes # 0.5 10^3/uL (0.2-0.9); Monocytes % 8.2 %; Neutrophils # 2.98 10^3/uL (1.8-7.7); Neutrophils % 48.8 %; Nucleated Red Blood Cells % 0 %; Platelet Count 320 10^3/cmm (130-400); Red Blood Count 5.03 10^6/uL (4.1-5.3); White Blood Count 6.1 10^3/uL (4.0-10.0)
[2022-07-06 12:06] LABS: Erythrocyte Sedimentation Rate 10 mm/hr (0-15)
[2022-07-06 12:29] LABS: Alanine Aminotransferase 13 U/L (0-33); Aspartate Amino Transferase 16 U/L (0-32); Glomerular Filtration Rate 123.4 mL/min (90-130)
== END 2022-07-06 11:03 | disposition home or self-care (01) ==
PROVIDERS: PCP Family Medicine; Visit Provider Physician Assistant
DX: Z01.89 Encounter for other specified special examinations (principal)
CPT/HCPCS: 36415; 82565; 84450; 84460; 85025; 85651

== ENCOUNTER 2022-07-16 09:00 | Outpatient (CLI) | payer MEDICARE, OTHER, SELFPAY ==
--- NOTE | 2022-07-16 09:37 | MM_ITS ---
WS: [id number] DIAGNOSTIC BILATERAL DIGITAL BREAST TOMOSYNTHESIS MAMMOGRAPHY WITH CAD LEFT breast ultrasound, limited HISTORY: LT BREAST MASS, palpable mass inferior medial LEFT breast. COMPARISON: 05/09/2021 mammogram TECHNIQUE: Bilateral craniocaudad, mediolateral oblique, and mediolateral views are submitted with to anna and JOSE ALBERTO. Spot compression LEFT CC. Computer aided detection utilized. Breast composition: There are scattered areas of fibroglandular density. Palpable mass corresponds to an 8 mm lobulated mass which is unchanged since 05/09/2021 and described as a lymph node. Prior imagin g report described this mass as a lymph node also. There are additional lymph nodes in the upper oute r quadrants. LEFT breast ultrasound, limited. Ultrasound is directed to the LEFT breast, inferomedial quadrant in the region of palpable abnormalit y. No underlying mass is identified. Often lymph nodes are difficult to see by mammography. There is no mass or shadowing. MM/[place] [id number] IMPRESSION: BI-RADS: 2-Benign FOLLOW UP: 1 Year Follow-up Palpable area LEFT breast corresponds to a lymph node that was also present on 05/09/2021 without increase in size. If this lymph node becomes significantly lar magdalena or more painful reevaluation by by mammography/ultrasound can be performed.
== END 2022-07-16 09:01 | disposition home or self-care (01) ==
LOC: RAD 09:10
PROVIDERS: PCP Family Medicine; Visit Provider Family Medicine
DX: N63.21 Unspecified lump in the left breast, upper outer quadrant (principal); R92.2 Inconclusive mammogram; R59.0 Localized enlarged lymph nodes
CPT/HCPCS: 76642; 77062; G0279

== ENCOUNTER → 2022-08-08 09:34 | Outpatient (BNVA) | payer MEDICARE, OTHER, SELFPAY | PROVIDERS: PCP Family Medicine; Visit Provider Internal Medicine Rheumatology | DX: M06.041 Rheumatoid arthritis without rheumatoid factor, right hand (principal); M06.042 Rheumatoid arthritis without rheumatoid factor, left hand; Z71.85 Encounter for immunization safety counseling; Z79.899 Other long term (current) drug therapy; Z96.651 Presence of right artificial knee joint | CPT/HCPCS: 99204 ==

== ENCOUNTER → 2022-09-05 09:43 | Outpatient (BNVA) | payer MEDICARE, OTHER, SELFPAY | PROVIDERS: PCP Family Medicine; Visit Provider Nurse Practitioner Family | DX: Z96.651 Presence of right artificial knee joint (principal); Z98.890 Other specified postprocedural states; M17.12 Unilateral primary osteoarthritis, left knee | CPT/HCPCS: 73560; 73565; 99213 ==

== ENCOUNTER → 2022-09-11 08:49 | Outpatient (BNVA) | payer MEDICARE, OTHER, SELFPAY | PROVIDERS: PCP Family Medicine; Visit Provider Physician Assistant | DX: M47.812 Spondylosis without myelopathy or radiculopathy, cervical region (principal); M47.22 Other spondylosis with radiculopathy, cervical region; M54.2 Cervicalgia; M54.9 Dorsalgia, unspecified | CPT/HCPCS: 99203 ==

== ENCOUNTER → 2022-09-11 08:55 | Outpatient (BNVA) | payer MEDICARE, OTHER, SELFPAY | PROVIDERS: PCP Family Medicine; Visit Provider Physician Assistant | DX: M54.2 Cervicalgia (principal) | CPT/HCPCS: 72050 ==

== ENCOUNTER → 2022-09-11 09:42 | Outpatient (BNVA) | payer MEDICARE, OTHER, SELFPAY | PROVIDERS: PCP Family Medicine; Visit Provider Family Medicine | DX: S30.861A Insect bite (nonvenomous) of abdominal wall, initial encounter (principal); W57.XXXA Bitten or stung by nonvenomous insect and other nonvenomous arthropods, initial encounter | CPT/HCPCS: 86618; 86666; 86757 ==

== ENCOUNTER 2022-09-25 08:47 | Outpatient (CLI) | payer MEDICARE, OTHER, SELFPAY ==
--- NOTE | 2022-09-25 09:30 | MR_ITS ---
WS: [id number] MRI CERVICAL SPINE NONCONTRAST TECHNIQUE: Sagittal T1, T2 and STIR imaging. Axial T2, gradient, and fiesta imaging. CLINICAL INFORMATION: pain in neck with numbness and tingling down to right arm COMPARISON: None. FINDINGS: Straightening of the normal cervical lordosis. Slight anterolisthesis C3 on C4 and C4 on C5. Slight a nterolisthesis C6 on C7 and C7 on T1. C2-C3: Mild facet arthropathy. Mild LEFT foraminal narrowing. Spinal canal is patent. C3-C4: Moderate LEFT facet arthropathy. Small facet effusion. Moderate LEFT bony foraminal narrowing. Mild RIGHT foraminal narrowing. Tiny annular fissure. Spinal canal is patent. C4-C5: Mild disc osteophyte complex with endplate ridging. Mild LEFT and no RIGHT foraminal narrowing . Moderate facet arthropathy worse in the RIGHT. C5-C6: Mild disc bulging with slight effacement of the ventral thecal sac. Moderate to severe LEFT an d mild to moderate RIGHT bony foraminal narrowing. LEFT facet synovitis. Spinal canal is patent. C6-C7: Slight anterolisthesis C6 on C7. Mild LEFT and no significant RIGHT foraminal narrowing. LEFT facet synovitis with edema. Moderate LEFT facet arthropathy. C7-T1: Mild LEFT and no significant RIGHT foraminal narrowing. Spinal canal is patent. Mild facet art hropathy. Visualized brain stem structures: Normal. Prevertebral soft tissues: Normal. Small vessel changes in the monica. MR/MR cervical spin wo con* [id number] IMPRESSION: 1. Straightening of the normal cervical lordosis with slight anterolisthesis C 4 on C5, C6 on C7 and C7 on T1. 2. No high-grade central canal stenosis. Cord signal is normal. 3. Moderate LEFT C3-C4 and C4-C5 bony foraminal 4. Moderate to severe LEFT C5-C6 bony foraminal narrowing. 5. LEFT facet synovitis C3-C4 and C5-C6, C6-C7. 6. Moderate facet arthropathy worse at LEFT C3-C4, RIGHT C4-C5, LEFT C5-C6, an d LEFT C6-C7.
== END 2022-09-25 08:48 | disposition home or self-care (01) ==
LOC: RAD 09:00
PROVIDERS: PCP Family Medicine; Visit Provider Physician Assistant
DX: M65.88 Other synovitis and tenosynovitis, other site (principal); M54.2 Cervicalgia
CPT/HCPCS: 72141; 86618; 86666; 86757; 99203

== ENCOUNTER → 2022-10-04 14:15 | Outpatient (BNVA) | payer MEDICARE, OTHER, SELFPAY | PROVIDERS: PCP Family Medicine; Visit Provider Orthopaedic Surgery | DX: Z09 Encounter for follow-up examination after completed treatment for conditions other than malignant neoplasm (principal); M47.22 Other spondylosis with radiculopathy, cervical region | CPT/HCPCS: 99214 ==

== ENCOUNTER → 2022-11-08 09:53 | Outpatient (BNVA) | payer MEDICARE, OTHER, SELFPAY | PROVIDERS: PCP Family Medicine; Visit Provider Orthopaedic Surgery | DX: M47.22 Other spondylosis with radiculopathy, cervical region | CPT/HCPCS: 99214 ==

== ENCOUNTER → 2022-11-13 10:56 | Outpatient (BNVA) | payer MEDICARE, OTHER, SELFPAY | PROVIDERS: PCP Family Medicine; Visit Provider Internal Medicine Rheumatology | DX: M06.041 Rheumatoid arthritis without rheumatoid factor, right hand (principal); M06.042 Rheumatoid arthritis without rheumatoid factor, left hand; Z79.899 Other long term (current) drug therapy; Z71.85 Encounter for immunization safety counseling; Z96.651 Presence of right artificial knee joint; E11.9 Type 2 diabetes mellitus without complications | CPT/HCPCS: 36415; 80076; 82565; 85025; 86140; 99214 ==

== ENCOUNTER → 2022-11-19 08:47 | Outpatient (BNVA) | payer MEDICARE, OTHER, SELFPAY | PROVIDERS: PCP Family Medicine; Visit Provider Anesthesiology Pain Medicine | DX: M47.812 Spondylosis without myelopathy or radiculopathy, cervical region; M47.22 Other spondylosis with radiculopathy, cervical region; Z96.651 Presence of right artificial knee joint; M79.2 Neuralgia and neuritis, unspecified | CPT/HCPCS: 99204 ==

== ENCOUNTER → 2022-12-04 13:57 | Outpatient (BNVA) | payer MEDICARE, OTHER, SELFPAY | PROVIDERS: PCP Family Medicine; Visit Provider Anesthesiology Pain Medicine | DX: M54.12 Radiculopathy, cervical region (principal) | CPT/HCPCS: 62321; J1100 ==

== ENCOUNTER → 2022-12-31 12:46 | Outpatient (BNVA) | payer MEDICARE, OTHER, SELFPAY | PROVIDERS: PCP Family Medicine; Visit Provider Anesthesiology Pain Medicine | DX: M54.12 Radiculopathy, cervical region (principal); E03.9 Hypothyroidism, unspecified; E11.9 Type 2 diabetes mellitus without complications | CPT/HCPCS: 62321; 83036; 84443; J1100 ==

== ENCOUNTER 2023-01-10 09:34 | Outpatient (CLI) | payer MEDICARE, OTHER, SELFPAY ==
--- NOTE | 2023-01-10 10:30 | US_ITS ---
WS: [id number] THYROID ULTRASOUND HISTORY: thyroid mass COMPARISON: None available. Right lobe: Prior RIGHT thyroidectomy. No mass or recurrent mass at the RIGHT thyroid bed. Left lobe: 1.3 cm x 0.9 cm x 3.9 cm (w x ap x l). Volume: 2.5 cm3. Normal sized gland. Mixed echogenicity nodule in the inferior pole. This appears to be a spongiform n odule which is benign. This nodule measures 8 x 6 x 7 mm. No echogenic foci. No cervical chain lymph nodes. There is a small nodule in the superficial RIGHT submandibular gland l ess than 1 cm. Nonspecific in appearance. Not a solid mass. Contain cystic components. Isthmus: 0.2 cm. IMPRESSION: 1. Status post RIGHT thyroidectomy. No recurrent mass in the thyroid bed. 2. Benign-appearing, probable spongiform nodule in the lower pole LEFT thyroid.
== END 2023-01-10 09:35 | disposition home or self-care (01) ==
LOC: RAD 09:40
PROVIDERS: PCP Family Medicine; Visit Provider Family Medicine
DX: E07.9 Disorder of thyroid, unspecified (principal)
CPT/HCPCS: 76536

== ENCOUNTER → 2023-01-14 10:13 | Outpatient (BNVA) | payer MEDICARE, OTHER, SELFPAY | PROVIDERS: PCP Family Medicine; Visit Provider Anesthesiology Pain Medicine | DX: M47.812 Spondylosis without myelopathy or radiculopathy, cervical region; M47.22 Other spondylosis with radiculopathy, cervical region; Z96.651 Presence of right artificial knee joint; M79.2 Neuralgia and neuritis, unspecified | CPT/HCPCS: 99213 ==

== ENCOUNTER → 2023-01-17 08:23 | Outpatient (BNVA) | payer MEDICARE, OTHER, SELFPAY | PROVIDERS: PCP Family Medicine; Visit Provider Orthopaedic Surgery | DX: M47.22 Other spondylosis with radiculopathy, cervical region (principal); E11.9 Type 2 diabetes mellitus without complications | CPT/HCPCS: 36415; 72040; 80053; 81003; 83036; 85025; 99214 ==

== ENCOUNTER → 2023-01-21 07:58 | Outpatient (BNVA) | payer MEDICARE, OTHER, SELFPAY | PROVIDERS: PCP Family Medicine; Visit Provider Specialist | DX: M19.041 Primary osteoarthritis, right hand; M65.341 Trigger finger, right ring finger; Z46.89 Encounter for fitting and adjustment of other specified devices; M79.643 Pain in unspecified hand | CPT/HCPCS: 73110; 73130; 97760; 99213; L3924 ==

== ENCOUNTER 2023-01-21 09:46 | Outpatient (CLI) | payer MEDICARE, OTHER, SELFPAY | END 2023-01-21 09:47 | disposition home or self-care (01) | LOC: SPT 09:47 | PROVIDERS: PCP Family Medicine; Visit Provider Specialist | DX: Z46.89 Encounter for fitting and adjustment of other specified devices (principal); M19.041 Primary osteoarthritis, right hand; M79.643 Pain in unspecified hand | CPT/HCPCS: 97760; 99213; L3924 ==

== ENCOUNTER 2023-02-18 06:51 | Day surgery (SDC) | payer MEDICARE, OTHER, SELFPAY ==
[2023-02-18] VITALS (12 sets, daily range): BP systolic 141–165; BP diastolic 66–99; PULSE 62–82; RESP 14–18; TEMP 36.1–36.5; O2SAT 90–98; BMI 34.2
--- NOTE | 2023-02-18 | XR_ITS ---
WS: [id number] C-ARM RADIOGRAPHS CERVICAL SPINE; 4 IMAGES HISTORY: ACDF, OR PIC COMPARISON: None available. Intraoperative imaging during cervical fusion. Fusion in the lower cervical region. IMPRESSION: Intraoperative imaging during anterior cervical fusion.
[2023-02-18] MEDS: sodium chloride 0.9% 1,000 ML 30 ML IV (07:35)
--- NOTE | 2023-02-18 09:17 | ANES.PREANE2 ---
Pre-Anesthetic Assessment Height/Weight: Height 1.57 m Weight 84.822 kg Temp Pulse Resp BP Pulse Ox O2 Del Method 97.5 F L 62 18 145/84 96 Room Air 02/18/23 07:18 02/18/23 07:18 02/18/23 07:18 02/18/23 07:18 02/18/23 07:18 02/18/23 07:23 Preop Diagnosis: Cervical spondylosis with radiculopathy Operation Date: 02/18/23 09:00 Proposed Procedures p C5-6,C6-7 Anterior Cervical Discectomy & Fusion ACDF(Not Applicable) - Tien Esposito, DO Familial anesthetic complications: none Was Beta Justin taken within 24 hours: N/A Was Clonidine taken within 24 hours: N/A Last intake: Intake Last Liquid Date 02/17/23 Last Liquid Time 18:00 Last Solid Date 02/17/23 Last Solid Time 18:00 Social No alcohol and No tobacco Exam alert, oriented x 3, clear to auscultation bilaterally and regular rate & rhythm Airway Submandibular: within normal limits Cervical ROM: within normal limits Mallampati: Class II Dentition: false (upper) Metabolic Diabetes Mellitus, Morbid Obesity and Thyroid Disease Musc/skel Osteoarthritis/DJD and Rheumatoid Arthritis Anesthetic Plan ASA status: 3 Anesthesia: General Medications/Allergies Home Medications Medication Instructions Recorded Confirmed Last Taken Type cholecalciferol (vitamin D3) 25 50 mcg PO DAILY 04/24/22 02/15/23 02/17/23 History mcg (1,000 unit) capsule (Vitamin D3) hinged knee brace #1 ea 07/06/22 01/21/23 Unknown Rx osteoarthritis knee brace #1 ea 07/06/22 01/21/23 Unknown Rx diclofenac sodium 75 mg 75 mg PO Q12H PRN severe pain as 08/08/22 02/15/23 Unknown Rx tablet,delayed release needed #30 tabs folic acid 1 mg tablet 1 mg PO DAILY #90 tabs 08/08/22 02/15/23 01/28/23 Rx hydroxychloroquine 200 mg tablet 200 mg PO BID #180 tabs 11/13/22 02/15/23 01/28/23 Rx (Plaquenil) methotrexate sodium 2.5 mg tablet See Rx Instructions PO .week 11/13/22 02/15/23 01/28/23 Rx Rheumatoid Arthritis #40 tabs etanercept 50 mg/mL (1 mL) 50 mg SUBCUT Q7D #4 mL 11/19/22 02/15/23 01/28/23 Rx subcutaneous pen injector (Enbrel SureClick) atorvastatin 10 mg tablet 10 mg PO BEDTIME #90 tabs 12/31/22 02/15/23 02/17/23 Rx pregabalin 100 mg capsule (Lyrica) 100 mg PO TID 90 days #270 caps 12/31/22 02/18/23 02/16/23 Rx levothyroxine 100 mcg tablet 100 mcg PO DAILY #90 tabs 01/01/23 02/15/23 02/17/23 Rx estradiol 0.01% (0.1 mg/gram) 2 g vaginal DAILY #42.5 grams 01/02/23 02/18/23 02/11/23 Rx vaginal cream CMC JOINT BRACE #2 ea 01/21/23 01/21/23 Unknown Rx Bone growth stimulator #1 ea 02/08/23 Unknown Rx Allergies Allergy/AdvReac Type Severity Reaction Status Date / Time Sulfa (Sulfonamide Allergy Severe Unknown Verified 02/18/23 07:10 Antibiotics) serious reaction as child Current Medications Generic Name Dose Route Start Last Admin Trade Name Freq PRN Reason Stop Dose Admin Sodium Chloride 1,000 mls @ 30 mls/hr 02/18/23 07:00 02/18/23 07:35 Sodium Chloride 0.9% IV 02/19/23 06:59 30 mls/hr .Q24H MEENA Administration PFSH Anesthesia Medical History Dyslipidemia High risk medication use Immunization counseling Inflammatory polyarthropathy Osteoarthritis of right knee Seronegative rheumatoid arthritis of both hands Type 2 diabetes mellitus without complications Vitamin D deficiency, unspecified Surgical History H/O thyroidectomy Partial H/O: hysterectomy Total. History of ankle surgery Left History of carpal tunnel surgery Left History of partial adrenalectomy Left - benign History of thumb surgery Left Hx of tonsillectomy Data Anesthesia Cardiac Studies: No Data to Display
--- NOTE | 2023-02-18 10:06 | W.PM.OPSUD ---
Surgery/Procedure H&P Update DATE OF PROCEDURE: February 18, 2023 DATE H&P PERFORMED: 01/31/23 H&P UPDATE INFORMATION: I have reviewed H&P completed within last 30 days, I have examined patient prior to procedure and No changes to prior documentation PREOP DIAGNOSIS: Cervical spondylosis with radiculopathy PLANNED PROCEDURE: Operation Date: 02/18/23 09:00 Proposed Procedures p C5-6,C6-7 Anterior Cervical Discectomy & Fusion ACDF(Not Applicable) - Tien Esposito DO
[2023-02-18] MEDS: ceFAZolin 2,000 MG in sodium chloride 0.9% (plus) 50 ML 100 MG IV (10:45)
[2023-02-18] MEDS: lidocaine-epi 1% PF 1:200,000 30 mL SDV INJECTION (11:12)
--- NOTE | 2023-02-18 12:13 | P.OP_ITS ---
Operative Report Date of procedure: February 18, 2023 Pre-op diagnosis: Cervical spondylosis with radiculopathy Post-op diagnosis: same Procedure done: 1. Anterior diskectomy C5/6 2. Anterior discectomy C6/7 3. Insertion of cage C5/6 4. Insertion of Cage C6/7 5. Instrumentation with anterior plate from C5-C7 6. Use of allograft Surgeon: Tien Esposito DO Stamping Mill Tender: Royer Luna Stamping Mill Tender: The surgical supply assistant, Royer Luna, JOSE DE JESUS was needed for his expertise under the microscope. He was important and necessary throughout the procedure to complete in a safe and timely manner. He assisted with patient positioning prepping and draping tissue retraction suctioning of the operative field protection of the dural sac and tissue closure Estimated blood loss (mL): 25 Procedure: 1. Anterior diskectomy C5/6 2. Anterior discectomy C6/7 3. Insertion of cage C5/6 4. Insertion of Cage C6/7 5. Instrumentation with anterior plate from C5-C7 6. Use of allograft The patient was taken to the operating room, where he underwent general endotracheal anesthesia without complications. He was then positioned supine on the operating table, and all areas of impingement were well padded. The arms were carefully padded and tucked at his sides. A roll was placed between the shoulder blades.. An x-ray was done to determine the appropriate level for the skin incision. The entire neck was then sterilely prepped and draped in the usual fashion. Neuromonitoring was attached prior to prepping. A transverse skin incision was made and carried down to the platysma muscle. This was then split in line with its fibers. Blunt dissection was carried down medial to the carotid sheath and lateral to the trachea and esophagus until the anterior cervical spine was visualized. A needle was placed into a disc and an x-ray was done to determine its location. The longus colli muscles were then elevated bilaterally with the electrocautery unit. Self-retaining retractors were placed deep to the longus colli muscle. Attention was brought to the C5/6 level that was confirmed on x-ray. A caspar pin was placed into the C5 vertebrae and the C6 vertebrae. The disk space was then distracted. The microscope was then brought in. A radical anterior discectomies were performed at C5/6. This included complete removal of the anterior annulus, nucleus, and posterior annulus. The posterior longitudinal ligament was removed as were the posterior osteophytes. Foraminotomies were then accomplished bilaterally. This was done using a high speed meagan, kerrison rongeurs and curretes Once all of this was accomplished, the curved currette was used to check for any residual compression. The central canal was wide open as were the foramen. A high-speed bur was used to remove the cartilaginous endplates above and below the interspace. Bleeding cancellous bone was exposed. The disc space were measured and appropriate size cage were placed sterilely onto the field. Allograft graft was packed into the cages. The cage was then placed and there was good juxtaposition against the bleeding decorticated surfaces and good distraction of each interspace. Attention was brought to the next interspace. The [place] pins were removed. Bone wax was used to prevent any bleeding from occurring at the pin sites. Attention was brought to the C6/7 level that was confirmed on x-ray. A caspar pin was placed into the C6 vertebrae and the C7 vertebrae. The disk space was then distracted. The microscope was then brought in. A radical anterior discectomies were performed at C6/7. This included complete removal of the anterior annulus, nucleus, and posterior annulus. The posterior longitudinal ligament was removed as were the posterior osteophytes. Foraminotomies were then accomplished bilaterally. This was done using a high speed megaan, kerrison rongeurs and curretes Once all of this was accomplished, the curved currette was used to check for any residual compression. The central canal was wide open as were the foramen. A high-speed bur was used to remove the cartilaginous endplates above and below the interspace. Bleeding cancellous bone was exposed. The disc space were measured and appropriate size cage were placed sterilely onto the field. Allograft graft was packed into the cages. The cage was then placed and there was good juxtaposition against the bleeding decorticated surfaces and good distraction of each interspace. Attention was brought to the next interspace. The [place] pins were removed. Bone wax was used to prevent any bleeding from occurring at the pin sites. The appropriate size anterior cervical locking plate was chosen and bent into gentle lordosis. Two screws were then placed into each of the vertebral bodies at C5, C6 and C7. There was excellent purchase. A final x-ray was done conf irming good position of the hardware and Cages. The locking screws were then applied, also with excellent purchase. Following a final copious irrigation, there was good hemostasis and no dural leaks. The carotid pulse was strong. The wounds were then closed in layers using 2-0 Vicryl suture for the platysma muscle, 2-0 Vicryl suture for the subcutaneous tissue, and 4-0 monocryl suture in a subcuticular skin closure. Glue was placed followed by application of a sterile dressing. The drain was hooked to bulb suction. A soft collar was applied. The patient was then carefully returned to the supine position on his hospital bed where he was reversed and extubated and taken to the recovery room having tolerated the procedure well.
[2023-02-18] MEDS: fentaNYL 50 mcg/mL INJ 2mL IVP (12:34)
[2023-02-18] MEDS: HYDROcodone-acetaminophen 5-325 mg Tablet 1 TAB PO (13:06)
--- NOTE | 2023-02-18 14:18 | ANE.PACU2 ---
Inpatient post-anesthesia follow up: Airway intact: Yes Vital signs: Temperature 97.7 F Pulse Rate 69 Respiratory Rate 18 Blood Pressure 146/71 Pulse Oximetry 91 Oxygen Delivery Me thod Room Air Oxygen Flow Rate 3 Fraction of Inspir ed Oxygen Hydration adequate: Yes Nausea and vomiting: No Pain level: 3 Mental status: Baseline
== END 2023-02-18 13:54 | disposition home or self-care (01) ==
PROVIDERS: PCP Family Medicine; Visit Provider Orthopaedic Surgery
PROC: 0RB30ZZ Excision of Cervical Vertebral Disc, Open Approach (ICD-10-PCS; CPT 22551; principal; 2023-02-18 08:40)
DX: M47.812 Spondylosis without myelopathy or radiculopathy, cervical region (principal); E11.9 Type 2 diabetes mellitus without complications; E66.01 Morbid (severe) obesity due to excess calories; Z68.34 Body mass index [BMI] 34.0-34.9, adult; M06.9 Rheumatoid arthritis, unspecified; E78.5 Hyperlipidemia, unspecified
CPT/HCPCS: 20930; 22551; 22552; 22845; 22853 ×2; 72040; 76000; C1713; C1763; C9359; J0330; J0690; J1170; J2405; J2704; J3010; J3490; J7030

== ENCOUNTER → 2023-03-05 15:26 | Outpatient (BNVA) | payer MEDICARE, SELFPAY | PROVIDERS: PCP Family Medicine; Visit Provider Orthopaedic Surgery | DX: Z98.1 Arthrodesis status (principal); Z47.89 Encounter for other orthopedic aftercare | CPT/HCPCS: 99024 ==

== ENCOUNTER → 2023-04-02 13:53 | Outpatient (BNVA) | payer MEDICARE, OTHER, SELFPAY | PROVIDERS: PCP Family Medicine; Visit Provider Physician Assistant | DX: Z98.1 Arthrodesis status (principal); Z47.89 Encounter for other orthopedic aftercare | CPT/HCPCS: 72040; 99024 ==

== ENCOUNTER → 2023-04-08 13:47 | Outpatient (BNVA) | payer MEDICARE, OTHER, SELFPAY | PROVIDERS: PCP Family Medicine; Visit Provider Internal Medicine Rheumatology | DX: Z79.899 Other long term (current) drug therapy (principal); M06.041 Rheumatoid arthritis without rheumatoid factor, right hand; M06.042 Rheumatoid arthritis without rheumatoid factor, left hand; Z71.85 Encounter for immunization safety counseling; Z96.651 Presence of right artificial knee joint | CPT/HCPCS: 36415; 80076; 82085; 82306; 82550; 82565; 85025; 86140; 99214 ==

== ENCOUNTER → 2023-04-24 13:05 | Outpatient (BNVA) | payer MEDICARE, OTHER, SELFPAY | PROVIDERS: PCP Family Medicine; Visit Provider Specialist | DX: M65.341 Trigger finger, right ring finger; M65.351 Trigger finger, right little finger | CPT/HCPCS: 99214 ==

== ENCOUNTER → 2023-04-25 10:16 | Outpatient (BNVA) | payer MEDICARE, OTHER, SELFPAY | PROVIDERS: PCP Family Medicine; Visit Provider Orthopaedic Surgery | DX: Z98.1 Arthrodesis status (principal); Z47.89 Encounter for other orthopedic aftercare | CPT/HCPCS: 72040; 99024 ==

== ENCOUNTER → 2023-05-09 06:54 | Outpatient (BNVA) | payer MEDICARE, OTHER, SELFPAY | PROVIDERS: PCP Family Medicine; Visit Provider Specialist | DX: G56.01 Carpal tunnel syndrome, right upper limb (principal); M65.351 Trigger finger, right little finger; M65.341 Trigger finger, right ring finger | CPT/HCPCS: 95911 ==

== ENCOUNTER → 2023-05-15 13:57 | Outpatient (BNVA) | payer MEDICARE, OTHER, SELFPAY | PROVIDERS: PCP Family Medicine; Visit Provider Specialist | DX: G56.01 Carpal tunnel syndrome, right upper limb (principal); M65.351 Trigger finger, right little finger; M65.341 Trigger finger, right ring finger | CPT/HCPCS: 99215 ==

== ENCOUNTER → 2023-05-23 14:47 | Outpatient (BNVA) | payer MEDICARE, OTHER, SELFPAY | PROVIDERS: PCP Family Medicine; Visit Provider Family Medicine | DX: Z01.818 Encounter for other preprocedural examination (principal); E11.9 Type 2 diabetes mellitus without complications | CPT/HCPCS: 80053; 83036; 85025 ==

== ENCOUNTER 2023-06-11 05:42 | Day surgery (SDC) | payer MEDICARE, OTHER, SELFPAY ==
[2023-06-11] VITALS (9 sets, daily range): BP systolic 102–145; BP diastolic 55–81; PULSE 59–73; RESP 8–20; TEMP 36.2–36.7; O2SAT 95–99
[2023-06-11] MEDS: sodium chloride 0.9% 1,000 ML 30 ML IV (06:08)
[2023-06-11] MEDS: acetaminophen 1,000 MG/100 ML PIGGYBACK 400 MG IV (06:12)
[2023-06-11] MEDS: CELEcoxib 200 mg Capsule 400 MG PO (06:14)
[2023-06-11] MEDS: gabapentin 300 mg Capsule PO (06:14)
--- NOTE | 2023-06-11 06:49 | ANES.PREANE2 ---
Pre-Anesthetic Assessment Height/Weight: Height 1.55 m Weight 87.09 kg Temp Pulse Resp BP Pulse Ox O2 Del Method 97.4 F L 64 16 144/81 95 Room Air, Nasal Cannula 06/11/23 05:57 06/11/23 05:57 06/11/23 05:57 06/11/23 05:57 06/11/23 05:57 06/11/23 05:57 Operation Date: 06/11/23 07:00 Proposed Procedures p Carpal Tunnel Release(Right) - Crystal Le MD s Trigger Finger Release/ Right ring and small finger trigger release(Right) - Crystal Le MD Familial anesthetic complications: None Was Beta Justin taken within 24 hours: N/A Was Clonidine taken within 24 hours: N/A Last intake: Intake Last Liquid Date 06/10/23 Last Liquid Time 18:00 Last Solid Date 06/10/23 Last Solid Time 18:00 Social No alcohol and No tobacco Exam alert, oriented x 3, clear to auscultation bilaterally and regular rate & rhythm Airway Mallampati: Class I Dentition: false Metabolic Thyroid Disease Musc/skel Rheumatoid Arthritis Anesthetic Plan ASA status: 2 Anesthesia: Choice Risk of > 500 ml blood loss (7ml/kg in children): No Medications/Allergies Home Medications Medication Instructions Recorded Confirmed Last Taken Type cholecalciferol (vitamin D3) 25 50 mcg PO DAILY 04/24/22 06/11/23 06/10/23 History mcg (1,000 unit) capsule (Vitamin D3) hinged knee brace #1 ea 07/06/22 06/07/23 Unknown Rx osteoarthritis knee brace #1 ea 07/06/22 06/07/23 Unknown Rx atorvastatin 10 mg tablet 10 mg PO BEDTIME #90 tabs 12/31/22 06/11/23 06/10/23 Rx pregabalin 100 mg capsule (Lyrica) 100 mg PO TID 90 days #270 caps 12/31/22 06/11/23 06/10/23 Rx levothyroxine 100 mcg tablet 100 mcg PO DAILY #90 tabs 01/01/23 06/11/23 06/10/23 Rx estradiol 0.01% (0.1 mg/gram) 2 g vaginal DAILY #42.5 grams 01/02/23 06/11/23 06/10/23 Rx vaginal cream CMC JOINT BRACE #2 ea 01/21/23 06/07/23 Unknown Rx Bone growth stimulator #1 ea 02/08/23 06/07/23 Unknown Rx etanercept 50 mg/mL (1 mL) 50 mg SUBCUT Q7D #4 mL 04/08/23 06/10/23 06/03/23 Rx subcutaneous pen injector (Enbrel SureClick) folic acid 1 mg tablet 1 mg PO DAILY #90 tabs 04/08/23 06/11/23 06/10/23 Rx hydroxychloroquine 200 mg tablet 200 mg PO BID #180 tabs 04/08/23 06/10/23 02/18/23 Rx (Plaquenil) methotrexate sodium 2.5 mg tablet See Rx Instructions PO .week 04/08/23 06/10/23 02/18/23 Rx Rheumatoid Arthritis #40 tabs liraglutide 0.6 mg/0.1 mL (18 mg/3 1.2 mg (0.2 mL) SUBCUT DAILY #6 mL 06/07/23 06/10/23 06/03/23 Rx mL) subcutaneous pen injector (Victoza 2-Marquez) Allergies Allergy/AdvReac Type Severity Reaction Status Date / Time Sulfa (Sulfonamide Allergy Severe Unknown Verified 06/07/23 10:24 Antibiotics) serious reaction as child Current Medications Generic Name Dose Route Start Last Admin Trade Name Freq PRN Reason Stop Dose Admin Sodium Chloride 1,000 mls @ 30 mls/hr 06/11/23 06:00 06/11/23 06:08 Sodium Chloride 0.9% IV 06/12/23 05:59 30 mls/hr .Q24H MEENA Administration PFSH Anesthesia Medical History Immunization counseling High risk medication use Seronegative rheumatoid arthritis of both hands Osteoarthritis of right knee Dyslipidemia Type 2 diabetes mellitus without complications Vitamin D deficiency, unspecified Inflammatory polyarthropathy Surgical History H/O: hysterectomy Total. Hx of tonsillectomy History of partial adrenalectomy Left - benign History of carpal tunnel surgery Left History of thumb surgery Left H/O thyroidectomy Partial History of ankle surgery Left Data Anesthesia Cardiac Studies: No Data to Display
--- NOTE | 2023-06-11 07:02 | W.PM.OPSUD ---
Surgery/Procedure H&P Update DATE OF PROCEDURE: June 11, 2023 DATE H&P PERFORMED: 05/23/23 H&P UPDATE INFORMATION: I have reviewed H&P completed within last 30 days, I have examined patient prior to procedure, No changes to prior documentation and H&P is in [facility] on date indicated PLANNED PROCEDURE: Operation Date: 06/11/23 07:00 Proposed Procedures p Carpal Tunnel Release(Right) - Crystal Le MD s Trigger Finger Release/ Right ring and small finger trigger release(Right) - Crystal Le MD Related Problem List Diagnoses (1) Carpal tunnel syndrome of right wrist: (2) Acquired trigger finger of right ring finger: (3) Acquired trigger finger of right little finger:
[2023-06-11] MEDS: ceFAZolin 2,000 MG in sodium chloride 0.9% (plus) 50 ML 100 MG IV (07:06)
[2023-06-11] MEDS: BUPivacaine 0.5% INJ 30 mL XX (07:29)
--- NOTE | 2023-06-11 08:35 | PM.OP ---
Operative Report Date of procedure: June 11, 2023 Pre-op diagnosis: Right carpal tunnel and triggering of right ring and small finger Post-op diagnosis: Right carpal tunnel and triggering of right ring and small finger Post-op findings: Significant surrounding the flexor tendons with very thickened A1 pulleys Procedure done: Right carpal tunnel release with trigger finger release of the right ring and small fingers Specimens removed/disposition: None Surgeon: Crystal Le MD Tab Card Press Operator: None Anesthesia: General (Per LMA, ASA 2) Estimated blood loss (mL): 2 Tourniquet time (min): 26 IV fluids (mL): 600 Urine output (mL): 0 (No [place]) Complications: None Findings: Significant inflammation of the flexor tendons and thickening of the A1 cristofer. Small ganglion cyst particularly at the ring finger. Condition: stable Disposition: PACU (Then return to same-day surgery for discharge to home) Brief History: This 68-year-old woman presented to the office with complaints of carpal tunnel syndrome and severe triggering of the right ring and small fingers. Nerve conduction studies demonstrated the patient had severe right carpal tunnel syndrome. Physical examination demonstrated the significant triggering. Discussion was undertaken with the patient regarding surgical intervention. She wished to proceed. Questions were answered and consents were signed in the office. Procedure: The patient was brought to the operating theater. Patient had a general anesthetic per LMA, ASA 2. The tourniquet was elevated to 250 mmHg for a total tourniquet time of 26 minutes. The patient was also given Ancef 2 g preoperatively. The arm was then prepped and draped with DuraPrep in usual fashion with the arm draped free. A surgical pause was performed. At the time, the surgical pause, we confirmed the site and side of surgery. We also confirmed the patient's identity, appropriate and timely administration of preoperative antibiotics and preoperative surgical markings. An incision was then made along the thenar crease. Dissection continued through skin and soft tissues using a scalpel. The palmaris longus was identified along with the transverse carpal ligament. Each of these was released carefully to avoid injury to the median nerve. We were able to dissect gently into the carpal canal which was noted to be quite tight with significant compression across the median nerve. The nerve was visualized and was an hourglass shape. The canal was subsequently palpated to assure there was no bony encroachment upon the canal. There was a quite thickened fibrous tissue within the canal, and this was opened longitudinally as well. The canal was then palpated distally and proximally to assure that my small finger was passed easily without impingement. Finding this to be so, attention was directed to closure. The wound was irrigated with ropivacaine plain. It was then closed with 3-0 nylon in an interrupted mattress fashion. The incision was injected with local at that time. An incision was made along the distal palmar crease beneath the ring and small fingers. Dissection continued through the skin through the subcutaneous tissues using a scalpel. Blunt dissection was then utilized to spread soft tissues and allow access to the A1 cristofer. Each A1 cristofer was identified. It was then incised longitudinally and sharply using a knife. This was accomplished without difficulty and atraumatically. Once the A1 pulleys were released, tendons were brought up out of the wound and evaluated. There were no gross masses on the tendons, but there was fluid consistent with a small ganglion cyst particularly involving the ring finger. Tendons were returned to normal position. We then irrigated the wound and subsequently closed it with 3-0 nylon with an interrupted mattress type suture. Following closure, the wound was injected again with local into the subcutaneous tissues. Sterile dressing was then placed consisting of Dermabond over both incisions. This was followed by OpSite and Tegaderm. Fluffed fluffs were then placed along with soft roll and an [place] wrap. The patient was returned to recovery in satisfactory condition. She will be discharged home to follow-up in the office. There were no complications and no specimens. Related Problem List Diagnoses (1) Carpal tunnel syndrome of right wrist: (2) Acquired trigger finger of right ring finger: (3) Acquired trigger finger of right little finger:
--- NOTE | 2023-06-11 09:20 | ANE.PACU2 ---
Inpatient post-anesthesia follow up: Airway intact: Yes Vital signs: Temperature 97.1 F Pulse Rate 60 Respiratory Rate 16 Blood Pressure 118/55 Pulse Oximetry 95 Oxygen Delivery Me thod Room Air Oxygen Flow Rate Fraction of Inspir ed Oxygen Hydration adequate: Yes Nausea and vomiting: No Pain level: 1 Mental status: Baseline
== END 2023-06-11 09:20 | disposition home or self-care (01) ==
PROVIDERS: PCP Family Medicine; Visit Provider Specialist
PROC: (CPT 64721; principal; 2023-06-11 07:00)
PROC: (CPT 26055; 2023-06-11 07:00)
DX: G56.01 Carpal tunnel syndrome, right upper limb (principal); M65.341 Trigger finger, right ring finger; M65.351 Trigger finger, right little finger; M06.9 Rheumatoid arthritis, unspecified; E78.5 Hyperlipidemia, unspecified; E11.9 Type 2 diabetes mellitus without complications
CPT/HCPCS: 26055 ×2; 64721; 97760; J0131; J0690; J1100; J1885; J2371; J2405; J2704; J3010; J3490; J7030; L3908

== ENCOUNTER → 2023-06-26 08:57 | Outpatient (BNVA) | payer MEDICARE, OTHER, SELFPAY | PROVIDERS: PCP Family Medicine; Visit Provider Nurse Practitioner | DX: Z98.890 Other specified postprocedural states (principal); M18.11 Unilateral primary osteoarthritis of first carpometacarpal joint, right hand | CPT/HCPCS: 99024 ==

== ENCOUNTER → 2023-07-04 09:51 | Outpatient (BNVA) | payer MEDICARE, OTHER, SELFPAY | PROVIDERS: Visit Provider Orthopaedic Surgery | DX: M47.22 Other spondylosis with radiculopathy, cervical region (principal); Z98.1 Arthrodesis status | CPT/HCPCS: 72040; 99213 ==

== ENCOUNTER → 2023-07-22 13:46 | Outpatient (BNVA) | payer MEDICARE, OTHER, SELFPAY | PROVIDERS: Visit Provider Internal Medicine Rheumatology | DX: Z79.899 Other long term (current) drug therapy (principal); M06.041 Rheumatoid arthritis without rheumatoid factor, right hand; M06.042 Rheumatoid arthritis without rheumatoid factor, left hand; M25.552 Pain in left hip | CPT/HCPCS: 20610; 99214; J1010 ==

== ENCOUNTER → 2023-08-12 08:51 | Outpatient (BNVA) | payer MEDICARE, OTHER, SELFPAY | PROVIDERS: Visit Provider Family Medicine | DX: E11.9 Type 2 diabetes mellitus without complications (principal); E03.9 Hypothyroidism, unspecified | CPT/HCPCS: 80053; 80061; 83036; 84439; 84443 ==

== ENCOUNTER 2023-10-01 11:05 | Outpatient (CLI) | payer MEDICARE, OTHER, SELFPAY ==
--- NOTE | 2023-10-01 13:30 | MM_ITS ---
WS: [id number] BILATERAL 3D TOMOSYNTHESIS DIGITAL SCREENING MAMMOGRAPHY WITH CAD CLINICAL INFORMATION: screening HISTORY: Screening mammogram. No current complaints. COMPARISON: 07/16/2022 TECHNIQUE: Bilateral CC and MLO views. FINDINGS: Scattered fibroglandular densities bilaterally. No suspicious focal mass, asymmetry, calcifications, or architectural distortion. No evidence of malignancy. Scattered stable intramammary lymph nodes. In tramammary lymph node lower inner quadrant LEFT breast unchanged. MM/[place] [id number] IMPRESSION: BI-RADS: 2-Benign FOLLOW UP: 1 Year Follow-up Recommend return to annual screening mammography.
== END 2023-10-01 11:06 | disposition home or self-care (01) ==
LOC: RAD 11:06
PROVIDERS: PCP Family Medicine Adult Medicine; Visit Provider Family Medicine
DX: Z12.31 Encounter for screening mammogram for malignant neoplasm of breast (principal); Z98.1 Arthrodesis status
CPT/HCPCS: 72040; 77063; 77067; 99213

== ENCOUNTER → 2024-01-06 09:30 | Outpatient (BNVA) | payer MEDICARE, OTHER, SELFPAY | PROVIDERS: PCP Family Medicine Adult Medicine; Visit Provider Family Medicine | DX: E11.9 Type 2 diabetes mellitus without complications (principal) | CPT/HCPCS: 82043; 83036 ==

== ENCOUNTER 2024-01-17 07:41 | Outpatient (CLI) | payer MEDICARE, SELFPAY ==
--- NOTE | 2024-01-17 08:00 | CT_ITS ---
WS: [id number] LDCT LUNG CANCER SCREENING HISTORY: screening for lung cancer TECHNIQUE: Axial imaging performed from the apices to 1 cm below the costophrenic angles. Coronal and sagittal reformats are submitted with axial MIP series. All CT scans at [facility] use at least one of these dose optimization techniques: automated exposure control; mA and/or kV adjustment per patient size (includes targeted exams where dose is matched to clinical indication); or iterativ e reconstruction. DLP: 64.03 mGy.cm DIvol: Mean CTDIvol: 1.70 (mGy) COMPARISON: None available. Diagnostic quality: Satisfactory Lungs: 8 mm calcified nodule RIGHT middle lobe. No additional mass or pulmonary nodule. No endobronch ial lesions. Heart: Normal size heart with no pericardial effusion.. Other findings: No adenopathy identified. Mild atherosclerosis aorta. Normal size pulmonary artery. S uperficial subcutaneous soft tissue nodule along the medial LEFT chest wall is probably an epidermal inclusion cyst. Status post LEFT adrenalectomy. CT/CT lung screening [id number] IMPRESSION: LUNG-RADS: 2-Benign Appearance or Behavior FOLLOW UP: 12 Month: Continue annual screening with LDCT OTHER FINDINGS (S MODIFIER): None.
== END 2024-01-17 07:42 | disposition home or self-care (01) ==
LOC: RAD 07:42
PROVIDERS: PCP Family Medicine Adult Medicine; Visit Provider Family Medicine
DX: Z12.2 Encounter for screening for malignant neoplasm of respiratory organs (principal); R91.1 Solitary pulmonary nodule; Z98.890 Other specified postprocedural states
CPT/HCPCS: 71271

== ENCOUNTER → 2024-01-27 13:29 | Outpatient (BNVA) | payer MEDICARE, SELFPAY | PROVIDERS: PCP Family Medicine Adult Medicine; Visit Provider Internal Medicine Rheumatology | DX: M06.041 Rheumatoid arthritis without rheumatoid factor, right hand (principal); M06.042 Rheumatoid arthritis without rheumatoid factor, left hand; Z79.899 Other long term (current) drug therapy; Z71.85 Encounter for immunization safety counseling; Z96.651 Presence of right artificial knee joint | CPT/HCPCS: 36415; 80076; 82565; 85025; 85651; 86140; 99214 ==

== ENCOUNTER 2024-01-30 12:21 | Outpatient (CLI) | payer MEDICARE, SELFPAY ==
--- NOTE | 2024-01-30 12:26 | XR_ITS ---
WS: [id number] Lumbar spine, 3 views, 01/30/2024 Clinical Data: upper lumbar pain Comparison: None. Findings: No compression fractures or subluxation is seen. There is degenerative disc narrowing at L1-L2. The transverse processes and SI joints are normal. There is minimal osteoarthritic spurring. There is multilevel facet joint arthritis from L3-L4 to L5- S1. There is a slight dextroscoliosis. There are surgical clips in the left upper quadrant. XR/XR lumbar spine 2-3V* [id number] Impression: 1. Minimal osteoarthritis of all the lumbar vertebral bodies. 2. Dextroscoliosis and degenerative disc narrowing at L1-L2. 3. Multilevel facet joint arthritis.
--- NOTE | 2024-01-30 12:26 | XR_ITS ---
WS: [id number] Thoracic spine, 3 views, 01/30/2024 Clinical Data: thoracic back pain; Comparison: None. Findings: No compression fractures are seen. The disc heights are normal. There is moderate anterior osteoarthritic spurring. The paravertebral regions are normal. There is an anterior cervical disc fusion. There are surgical clips in the left upper quadrant. XR/XR thoracic spine 2V [id number] Impression: Moderate osteoarthritis of the thoracic vertebral bodies.
== END 2024-01-30 12:22 | disposition home or self-care (01) ==
LOC: RAD 12:23
PROVIDERS: PCP Family Medicine; Visit Provider Family Medicine
DX: M47.14 Other spondylosis with myelopathy, thoracic region (principal); M47.896 Other spondylosis, lumbar region; M41.35 Thoracogenic scoliosis, thoracolumbar region; R10.9 Unspecified abdominal pain; G89.29 Other chronic pain
CPT/HCPCS: 72070; 72100

== ENCOUNTER → 2024-02-10 09:21 | Outpatient (BNVA) | payer MEDICARE, OTHER, SELFPAY | PROVIDERS: PCP Family Medicine; Visit Provider Specialist | DX: M17.12 Unilateral primary osteoarthritis, left knee (principal); Z01.818 Encounter for other preprocedural examination | CPT/HCPCS: 36415; 73560; 73565; 80053; 81001; 85025; 99214 ==

== ENCOUNTER 2024-02-13 07:45 | Outpatient (CLI) | payer MEDICARE, OTHER, SELFPAY ==
--- NOTE | 2024-02-13 08:00 | CT_ITS ---
WS: [id number] CT ABDOMEN AND PELVIS WITH CONTRAST HISTORY: LUQ abd pain TECHNIQUE: Imaging performed of the abdomen and pelvis with IV contrast. Single phase imaging of the abdomen. Coronal and sagittal reformats are submitted. All CT scans at [facility] use at [address] one of these dose optimization techniques: automated exposure control; mA and/or kV adjustment per patient size (includes targeted exams where dose is matched to clinical indication); or iterative re construction. IV CONTRAST: Omnipaque 350; 100 mL IV. Oral contrast: No DLP: 693.29 mGy.cm COMPARISON: None available. Lower thorax: Reidentified is a 5 mm nodule in the RIGHT middle lobe. Heart is normal size. No hiatal hernia. Liver/biliary system: Normal size with no intrahepatic dilatation. Gallbladder: Normal. No gallstones or wall thickening. No pericholecystic fluid. Pancreas: Normal size pancreas and pancreatic duct. No adjacent inflammation. Spleen: Normal size spleen. No mass or infarct. Adrenal glands: Neither adrenal glands are very well visualized. There are surgical clips near the LE renal bed. Status post adrenalectomy. No RIGHT adrenal mass. Right kidney: Normal. Left kidney: Normal. Aorta: Mild atherosclerosis with no aneurysm. Lymphadenopathy: None. Free fluid: None. GI tract: Stomach is not distended. No oral contrast was given for this examination. There is a poste rior gastric wall ulcer with mild mucosal and submucosal edema and wall thickening. Focal tract of ai r extends into the gastric mucosa. There is no perforation at this time. No free air is identified. N o small bowel obstruction. Moderate diffuse constipation. Fecalization in the distal small bowel. Thi s typically indicates a chronic obstruction. No obstructing lesion is identified by CT in the colon. Minimal diverticular disease in the distal colon. Prior appendectomy. Abdominal wall: Fat containing umbilical hernia. Pelvis: No free fluid or adenopathy. Negative urinary bladder. Prior hysterectomy. Bones: Bilateral facet joint arthritis in the lower lumbar spine. CT/CT abdomen pelvis w con* [id number] IMPRESSION: 1. Posterior gastric wall ulcer. Gastric ulcer measures approximately 1.6 cm. No perforation. 2. Distal small bowel fecalization. There is associated marked constipation in volving the ascending colon. No obstructing lesion is identified. Typically fec alization of the small bowel is due to long-term low-grade obstruction with [place] terial overgrowth. No obstructing lesion identified within the colon. Consider slow intestinal transit. 3. Status post LEFT adrenalectomy.
--- NOTE | 2024-02-13 08:10 | CT_ITS ---
WS: [id number] CT LEFT knee, noncontrast HISTORY: PER [facility] PROTOCOL TECHNIQUE: Protocol for [facility] total knee replacement has been obtained. This includes axial imaging th rough the LEFT hip, LEFT knee and LEFT ankle. DLP: 930.24 mGy.cm COMPARISON: Radiograph 02/10/2024 Pelvis: Mild bilateral hip joint narrowing. No destructive bone process. LEFT knee: Mild to moderate tricompartment joint space narrowing with marginal osteophytes. Small sup rapatellar joint effusion. No destructive bone lesions. LEFT ankle: Negative. CT/CT knee LT [facility] [id number] IMPRESSION: CT imaging provided for [facility] robotic total knee replacement.
== END 2024-02-13 07:46 | disposition home or self-care (01) ==
LOC: RAD 07:46
PROVIDERS: PCP Family Medicine; Visit Provider Family Medicine
DX: Z01.818 Encounter for other preprocedural examination (principal); K25.3 Acute gastric ulcer without hemorrhage or perforation; R91.1 Solitary pulmonary nodule; M17.12 Unilateral primary osteoarthritis, left knee; M25.762 Osteophyte, left knee; K56.41 Fecal impaction; Z90.89 Acquired absence of other organs; Z90.710 Acquired absence of both cervix and uterus
CPT/HCPCS: 73700; 74177; Q9967

== ENCOUNTER 2024-03-03 15:41 | Observation (INO) | payer MEDICARE, OTHER, SELFPAY ==
[2024-03-03] VITALS (16 sets, daily range): BP systolic 99–138; BP diastolic 21–78; PULSE 50–72; RESP 16–19; TEMP 36.1–36.6; O2SAT 91–100; BMI 34.2
[2024-03-03] MEDS: acetaminophen 1,000 MG/100 ML PIGGYBACK 400 MG IV ×2 (10:31→18:19)
[2024-03-03] MEDS: sodium chloride 0.9% 1,000 ML 30 ML IV (10:32)
[2024-03-03] MEDS: CELEcoxib 200 mg Capsule 400 MG PO (10:33)
[2024-03-03] MEDS: gabapentin 300 mg Capsule PO (10:33)
--- NOTE | 2024-03-03 10:59 | P.HPUD_ITS ---
Surgery/Procedure H&P Update DATE OF PROCEDURE: March 03, 2024 DATE H&P PERFORMED: 02/10/24 H&P UPDATE INFORMATION: I have reviewed H&P completed within last 30 days, No changes to prior documentation and H&P is in [facility] [place] [facility] EMR on date indicated PLANNED PROCEDURE: Operation Date: 03/03/24 11:35 Proposed Procedures p Abhishek Robot Total Knee Arthroplasty(Left) - Crystal Le MD Related Problem List Diagnoses (1) Primary osteoarthritis of left knee:
--- NOTE | 2024-03-03 11:06 | ANES.PREANE2 ---
Pre-Anesthetic Assessment Height/Weight: Height 5 ft 2 in Weight 187 lb Temp Pulse Resp BP Pulse Ox O2 Del Method 97.8 F 57 L 17 138/72 97 Room Air 03/03/24 10:12 03/03/24 10:12 03/03/24 10:12 03/03/24 10:12 03/03/24 10:12 03/03/24 10:12 Preop Diagnosis: Knee osteoarthritis Operation Date: 03/03/24 11:35 Proposed Procedures p Abhishek Robot Total Knee Arthroplasty(Left) - Crystal Le MD Was Beta Justin taken within 24 hours: N/A Was Clonidine taken within 24 hours: N/A Last intake: Intake Last Liquid Date 03/02/24 Last Liquid Time 20:00 Last Solid Date 03/02/24 Last Solid Time 20:00 Social No alcohol and No tobacco Exam alert, oriented x 3, clear to auscultation bilaterally and regular rate & rhythm Airway Submandibular: within normal limits Cervical ROM: Other (Prior cervical ACDF, limited neck extension) Mallampati: Class II Dentition: false Anesthetic Plan ASA status: 3 Anesthesia: MAC and Regional (specify below) Other: No prior issues with anesthesia NPO since yesterday Prior history of cervical ACDF GERD on omeprazole Type 2 diabetes on liraglutide, last taken 02/24/2024 Prior spinal anesthetic without issues, recent lumbar x-ray showing dextroscoliosis Labs 02/10/2024 reviewed acceptable for procedure Plan for spinal anesthetic Medications/Allergies Home Medications Medication Instructions Recorded Confirmed Last Taken Type cholecalciferol (vitamin D3) 25 50 mcg PO DAILY 04/24/22 03/02/24 06/10/23 History mcg (1,000 unit) capsule (Vitamin D3) osteoarthritis knee brace #1 ea 07/06/22 02/25/24 Unknown Rx estradiol 0.01% (0.1 mg/gram) 2 g vaginal DAILY #42.5 grams 01/02/23 03/02/24 06/10/23 Rx vaginal cream atorvastatin 10 mg tablet 10 mg PO BEDTIME #90 tabs 01/06/24 03/02/24 03/01/24 Rx etanercept 50 mg/mL (1 mL) 50 mg SUBCUT Q7D #4 mL 01/27/24 03/02/24 02/24/24 Rx subcutaneous pen injector (Enbrel SureClick) hydroxychloroquine 200 mg tablet 200 mg PO BID #180 tabs 01/27/24 03/02/24 02/24/24 Rx (Plaquenil) liraglutide 0.6 mg/0.1 mL (18 mg/3 1.8 mg (0.3 mL) SUBCUT Q24H #9 mL 02/11/24 03/02/24 02/24/24 Rx mL) subcutaneous pen injector (Victoza 3-Marquez) omeprazole 40 mg capsule,delayed 40 mg PO BID #180 caps 02/13/24 03/02/24 03/02/24 Rx release folic acid 1 mg tablet 1 mg PO DAILY 03/02/24 03/02/24 Unknown History levothyroxine 100 mcg tablet 100 mcg PO DAILY 03/02/24 03/02/24 03/02/24 History methotrexate sodium 2.5 mg tablet 10 mg PO .WEEK Rheumatoid Arthritis 03/02/24 03/02/24 02/24/24 History pregabalin 100 mg capsule (Lyrica) 100 mg PO BID 03/02/24 03/02/24 03/02/24 History Allergies Allergy/AdvReac Type Severity Reaction Status Date / Time Sulfa (Sulfonamide Allergy Severe Unknown Verified 03/02/24 14:06 Antibiotics) serious reaction as child Current Medications Generic Name Dose Route Start Last Admin Trade Name Freq PRN Reason Stop Dose Admin Sodium Chloride 1,000 mls @ 30 mls/hr 03/03/24 10:15 03/03/24 10:32 Sodium Chloride 0.9% IV 03/04/24 10:14 30 mls/hr .Q24H MEENA Administration PFSH Anesthesia Medical History Left-sided abdominal pain of unknown etiology Lumbar spine pain Chronic thoracic back pain Encounter for screening for malignant neoplasm of lung quit smoking 2012; 33pk yr hx Nodule of left lobe of thyroid gland benign; last US 2022 Chronic pain of multiple joints Osteoarthritis of CMC joint of thumb High risk medication use Seronegative rheumatoid arthritis of both hands Dyslipidemia Type 2 diabetes mellitus without complications Vitamin D deficiency, unspecified Inflammatory polyarthropathy Surgical History Hx of fusion of cervical spine S/P trigger finger release DOS: 06/11/23. Surgery: Right carpal tunnel release with release of ring and small finger trigger finger. Surgeon: Dr. Crystal Le MD. Status post total right knee replacement not using cement Status post carpal tunnel release DOS: 06/11/23. Surgery: Right carpal tunnel release with release of ring and small finger trigger finger. Surgeon: Dr. Crystal Le MD. H/O: hysterectomy Hyst w/ BSO due to cysts Hx of tonsillectomy History of partial adrenalectomy Left - benign History of carpal tunnel surgery Left History of thumb surgery Left H/O thyroidectomy Partial; nodule History of ankle surgery Left Family History Mother Stroke Social History Smoking and tobacco/nicotine status: former use of tobacco/nicotine Quit status (tobacco/nicotine): has quit using Year quit tobacco: 2012 Former quit date comment: 33yrs smoking, 1ppd Second hand smoke exposure: No Alcohol intake: current Alcohol intake frequency: holidays/special occasions only Substance/Drug Use: never Household members: spouse Marital status: Number of children: 2 Highest education level completed: High School Graduate Current occupational status: retired 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
[2024-03-03] MEDS: ceFAZolin 2,000 mg SDV 2000 MG IVP ×2 (11:16→18:25)
[2024-03-03] MEDS: tranexamic acid 1,000 mg/10mL SDV 1000 MG IV (11:42)
[2024-03-03] MEDS: ceFAZolin 1,000 mg SDV 2000 MG (12:23)
[2024-03-03] MEDS: VANCOMYCIN ADD-Vantage 1,000 MG VIAL 1000 MG XX (12:23)
[2024-03-03] MEDS: BUPivacaine 0.5% INJ 30 mL 20 ML XX (12:24)
[2024-03-03] MEDS: BUPivacaine liposome 13.3 mg/mL SDV 20 mL 266 MG INFILTRATI (12:24)
--- NOTE | 2024-03-03 14:20 | XR_ITS ---
WS: [id number] XR knee LT -2V [id number] REASON FOR EXAM: Status post left total knee arthroplasty FINDINGS: Total left knee arthroplasty. Components of the arthroplasty are intact and in proper position and alignment. No bone abnormality. XR/XR knee LT -V [id number] IMPRESSION: Total left knee arthroplasty without abnormality.
--- NOTE | 2024-03-03 14:23 | P.OP_ITS ---
Operative Report Date of procedure: March 03, 2024 Pre-op diagnosis: Severe degenerative osteoarthritis left knee with varus deformity and slight hyperextension Post-op diagnosis: Severe degenerative osteoarthritis left knee with varus deformity and slight hyperextension Post-op findings: Severe degenerative osteoarthritis left knee with slight hyperextension and varus Procedure done: Left total knee arthroplasty with Abhishek guidance Implants: The [place] total knee system with a size 3 triathlon beaded cruciate retaining femur left, a triathlon titanium tibial component size 3 beaded, a triathlon X3 tibial bearing CS insert size 3 X 10 mm and a beaded triathlon titanium asymm etric patella size 32 x 10 mm Specimens removed/disposition: Bone, disposed of Pathology: None Surgeon: Crystal Le MD Director Of Retail Operations: Daphney Pierre NP, who services were required for retraction, implantation, exposure, and closure of the knee. Anesthesia: MAC (ASA 3) and Spinal Estimated blood loss (mL): 250 Tourniquet time (min): 0 (Not utilized) IV fluids (mL): 1,900 Urine output (mL): 450 Complications: None Findings: Severe degenerative osteoarthritis with slight hyperextension and varus deformity Condition: stable Disposition: PACU (Then admitted to floor under observation status for postoperative rehabilitation and pain management) Brief History: Latasha Rodriguez is a 68-year-old woman who presents today for left total knee arthroplasty. Initially, she presented with bilateral knee issues. The patient underwent right total knee arthroplasty uneventfully and has recovered nicely from this. She currently is having limitations in her activities of daily living secondary to her left knee, and she wishes to proceed with left total knee arthroplasty. Risks and complications were discussed with the patient. Consents were signed in the office, and questions were answered. Procedure: The patient was brought to the operating theater, and after undergoing spinal anesthesia with supplemental MAC, ASA 3, the left lower extremity was prepped with Dura-Prep and draped in usual fashion following placement of a tourniquet high on the leg. The leg was then draped free. Tourniquet was not elevated throughout the case. Surgical pause was performed, and at the time of the surgical pause, we confirmed the site and side of surgery. Additionally, we confirmed the appropriate and timely administration of preoperative antibiotics, Ancef 2 g and Transexemic acid 1 g.? The availability of equipment was confirmed, and the patient's identity was verbalized as well.? An additional transexemic acid 1 g was given at the end of the surgical procedure as well. Following the surgical pause, an incision was made centering over the patella continuing proximally and distally as necessary to allow access to the knee joint. Dissection continued through skin and soft tissues using a scalpel. Hemostasis was obtained using electrocautery. The skin incision was followed by a median parapatellar arthrotomy. The leg was extended, and the patella was able to be displaced laterally.? Appropriate arrays and markers were placed in a ppropriate position for use of the Abhishek.? Preoperative planning had been accomplished and was discussed in detail with the Abhishek business office representative.? Intraoperative mapping of the femur and tibia was accomplished after the arrays were placed.? Internal markers were also placed.? Once we had accomplished the Abhishek mapping, we began the appropriate resections for placement of the prosthesis.? The plan was for a cruciate retaining right total knee arthroplasty. Once appropriate mapping had been accomplished, retraction was established using manual retraction by surgical technicians and also the Abhishek leg positioner and retractors.? The knee was evaluated.? There was a significant osteoarthritic change.? Appropriate bone resection was accomplished using the Abhishek.? The femur was sized to a size 3.? Following femoral cuts, attention was directed to the tibia.? Osteophytes were removed prior to this portion of the procedure.? We had performed a minimal medial release at the beginning of the procedure to allow for placement of the array.? Proximal tibia was evaluated and it was felt that appropriate size for the tibia was a size 3. A trial reduction was accomplished after osteophytes have been removed as well as the medial and lateral menisci.? We had removed the anterior cruciate ligament at the beginning of the case and preserved the posterior cruciate ligament.? Medial release had been accomplished as well.? Trial reduction was accomplished with a size 3 femoral cruciate retaining component and a size 3 CS tibial bearing insert which was 10 mm in thickness which gave excellent varus valgus stability and full extension.? Alignment was felt to be appropriate as well.? As the patient had a varus deformity as well as slight hyperextension preoperatively, soft tissue releases were accomplished.? Trial components were removed after the femur had been drilled.? Prior to removal of the tibial tray which had been pinned in position with appropriate rotation as determined by the Abhishek plan, we broached the tibia.? Subsequently, the 4 drill holes were made for the prosthetic component.? All trial components were removed, and the wound was irrigated.? Plans were made for insertion of the prosthetic components.? Prior to this, the patella was manually prepared.? After resection of the articular surface with the jogging system, it was measured and measured a 32 mm x 10 mm patella.? We resected approximately 8 mm of patella, and patellar height was restored with the patellar component. Once again, the wound was irrigated.? The Tritanium tibia was impacted into position.? The beaded femur was then impacted into position in a cementless fashion. The CS tibial insert was placed prior to placement of the femoral component. The patella was pressed into position with a patellar clamp.? Exparel was injected about the components deep and superficially.? The knee was then copiously irrigated with betadine and saline and suctioned dry. Attention was then directed to closure. Closure was accomplished with 0 Vicryl in the fascial tissues.? This closure was supplemented with #1 strata fix with 2 passes of the STRATAFIX. One from proximal distal and the other from distal to proximal. This was followed by Surgiflo and vancomycin powder.? Following this, a 2-0 Monocryl strata fix was used in the subcutaneous tissues, and the skin was closed with a running 3-0 STRATAFIX.? Care was taken to assure an excellent subcutaneous as well as skin closure.? A sterile dressing was then placed consisting of Dermabond Prineo, OpSite, sterile soft roll including over the foot, and an Dakota wrap. The patient was returned the Recovery Room in a satisfactory condition. X-rays were obtained and reviewed there.? The patient will be discharged to the floor for postoperative rehabilitation and pain management. Related Problem List Diagnoses (1) Primary osteoarthritis of left knee:
[2024-03-03] MEDS: oxyCODONE 5 mg IR Tab/Cap PO ×3 (15:11→22:56)
--- NOTE | 2024-03-03 15:45 | ANE.PACU2 ---
Inpatient post-anesthesia follow up: Airway intact: Yes Vital signs: Temperature 97.1 F Pulse Rate 59 Respiratory Rate 17 Blood Pressure 126/73 Pulse Oximetry 98 Oxygen Delivery Me thod Room Air Oxygen Flow Rate 2 Fraction of Inspir ed Oxygen Hydration adequate: Yes Nausea and vomiting: No Pain level: 1 Mental status: Baseline
[2024-03-03] MEDS: mupirocin oint 22 gm 1 APPLIC NASAL (17:01)
[2024-03-03] MEDS: sennosides-docusate Tablet 2 TAB PO (17:01)
[2024-03-03] MEDS: iron polysaccharide complex 150 mg Capsule PO (17:01)
[2024-03-03] MEDS: pregabalin 100 mg Capsule PO (17:01)
[2024-03-03] MEDS: CELEcoxib 200 mg Capsule PO (17:01)
[2024-03-03] MEDS: calcium carbonate 500 mg Chew Tablet 1000 MG PO (17:01)
[2024-03-03] MEDS: pantoprazole DR 40 mg Tablet PO (17:03)
[2024-03-03] MEDS: chlorhexidine gluconate 0.12% Btl 473 mL 30 ML MUCOUS MEM (19:33)
[2024-03-03] MEDS: phenol oral Spray 177 mL 3 SPRAY MUCOUS MEM (23:29)
[2024-03-04] VITALS (10 sets, daily range): BP systolic 95–149; BP diastolic 53–78; PULSE 55–68; RESP 15–17; TEMP 36.6–37.4; O2SAT 90–96
[2024-03-04] MEDS: oxyCODONE 5 mg IR Tab/Cap PO ×3 (02:59→13:38)
[2024-03-04] MEDS: acetaminophen 1,000 MG/100 ML PIGGYBACK 400 MG IV ×2 (02:59→10:45)
[2024-03-04] MEDS: ceFAZolin 2,000 mg SDV 2000 MG IVP ×2 (02:59→10:48)
[2024-03-04 05:36] LABS: Basophils % 0.5 %; Eosinophils # 0.1 10^3/uL (0.0-0.8); Eosinophils % 1.5 %; Hematocrit 30.6 % (36-47); Lymphocytes # 1.3 10^3/uL (0.8-4.8); Lymphocytes % 22.1 %; Mean Corpuscular HGB Conc 32.7 g/dL (30-55); Mean Corpuscular Hemoglobin 30.3 pg (27-33); Mean Corpuscular Volume 92.7 fl (85-98); Monocytes # 0.5 10^3/uL (0.2-0.9); Monocytes % 9.1 %; Neutrophils % 66.6 %; Nucleated Red Blood Cells % 0 %; Platelet Count 189 10^3/cmm (157-399); Red Cell Distribution Width 13.9 % (12.1-15.1); White Blood Count 5.85 10^3/uL (3.29-11.43)
[2024-03-04 06:04] LABS: Anion Gap 12.3 (5-19); Blood Urea Nitrogen 12 mg/dL (8-23); Calcium 8.3 mg/dL (8.5-10.5); Carbon Dioxide 26 mmol/L (22-29); Chloride 99 mmol/L (98-107); Creatinine Clr Calc Pharmacy 68.9324; Glomerular Filtration Rate 123.1 mL/min (90-130); Glucose 149 mg/dL (65-115); Osmolality Calculated 279 mOsm/kg (285-295); Potassium 4.3 mmol/L (3.5-5.1); Sodium 133 mmol/L (136-145)
[2024-03-04 07:30] LABS: Glucose Point of Care 163 mg/dL (70-110)
--- NOTE | 2024-03-04 09:10 | PC.CHAP ---
Pastoral Care Encounter/Spiritual Assessment Type of Contact [] Declined shearer operator visit [] Patient/Family/Request visit [] Outpatient visit [] Follow-up visit [] Physician referral [] Code/Alert [x] Routine visit [] Staff referral [] Actively dying [] Patient sleeping [] Family support [] [] Out of room [] Palliative care [] [] Receiving care in room [] Pre-surgical visit [] Trauma [] Long length of stay [] ICU visit [] Other: Relational/Emotional Strength [x] Patient feels connected with others/family/visitors/staff [] Distress [] Loneliness/isolation [] Abandonment Spirituality of Patient [x] Person of Rosio [] Attends Congregational of their Rosio [x] Believes in Prayer [] Reads Bible or Cheondoism materials [] There are Spiritual issues to be addressed Junior Net Developer Interventions [x] Prayer [x] Active listening [] Non-anxious presence [x] Spiritual/emotional support [] Crisis/trauma care [] Spiritual counseling [] Bereavement support [] Provided bereavement packet [] Provided Bible/devotional materials [] Provided toy/stuffed animal, coloring book to patient or family member [] Provided Communion [] Anointing/[place] [] Salvation [x] Completed spiritual assessment [] Other: Impact on Illness or Injury [] Angry [] Fearful [] Anxious [] Often cries [] Exhaustion [] Unable to work [] Unable to attend restorationist [] Unable to walk/stand [] Unable to read [] Unable to drive [] Unable to eat/drink [] Unable to sleep [] Unable to be with family [] Patient intubated [] Other: Summary Time spent with patient 5 min
[2024-03-04] MEDS: calcium carbonate 500 mg Chew Tablet 1000 MG PO (09:30)
[2024-03-04] MEDS: multivitamin therapeutic Tablet 1 TAB PO (09:31)
[2024-03-04] MEDS: sennosides-docusate Tablet 2 TAB PO (09:31)
[2024-03-04] MEDS: levothyroxine 100 mcg Tablet PO (09:31)
[2024-03-04] MEDS: aspirin 325 mg EC Tablet PO (09:31)
[2024-03-04] MEDS: CELEcoxib 200 mg Capsule PO (09:31)
[2024-03-04] MEDS: cholecalciferol (vitamin D3) 1,000 unit Tablet 1000 UNIT PO (09:31)
[2024-03-04] MEDS: pregabalin 100 mg Capsule PO (09:32)
[2024-03-04] MEDS: mupirocin oint 22 gm 1 APPLIC NASAL (09:32)
[2024-03-04] MEDS: chlorhexidine gluconate 0.12% Btl 473 mL 30 ML MUCOUS MEM ×2 (09:32→13:38)
[2024-03-04] MEDS: iron polysaccharide complex 150 mg Capsule PO (09:32)
[2024-03-04] MEDS: pantoprazole DR 40 mg Tablet PO (09:32)
[2024-03-04] MEDS: acetaminophen 500 mg Tablet 1000 MG PO (14:36)
--- NOTE | 2024-03-04 16:26 | P.DS_ITS ---
Discharge Providers Date of Admission: 03/03/24 15:41 Date of Discharge: March 04, 2024 Attending Provider at Admission: Crystal Le MD Attending Provider at Discharge: Crystal Le MD Primary Care Provider: Leighann Chirinos MD Diagnoses at Discharge Discharge Diagnosis (1) Primary osteoarthritis of left knee: Status: Acute (2) Status post total left knee replacement not using cement: Status: Acute Permanent problem details: Date of procedure: March 03, 2024 Diagnosis: Severe degenerative osteoarthritis left knee with varus deformity and slight hyperextension Procedure done: Left total knee arthroplasty with Abhishek guidance Implants: The An[employer]u total knee system with a size 3 triathlon beaded cruciate retaining femur left, a triathlon titanium tibial component size 3 beaded, a triathlon X3 tibial bearing CS insert size 3 X 10 mm and a beaded triathlon titanium asymmetric patella size 32 x 10 mm Reason for Visit Reason for Visit: M17.11 Brief History: Latasha Rodriguez is a 68-year-old woman who presents today for left total knee arthroplasty. Initially, she presented with bilateral knee issues. The patient underwent right total knee arthroplasty uneventfully and has recovered nicely from this. She currently is having limitations in her activities of daily living secondary to her left knee, and she wishes to proceed with left total knee arthroplasty. Risks and complications were discussed with the patient. Consents were signed in the office, and questions were answered. Hospital Course Hospital Course Patient was admitted to the hospital for left total knee arthroplasty with Abhishek guidance. Postoperatively, after an uneventful procedure, the patient was admitted to the hospital under observation status for postoperative rehabilitation and pain management. On the first postoperative day, her pain was well-managed. She was neurologically intact. Large dressing was removed, and the smaller OpSite was dry and intact. Plans were made for her discharge to home as she was felt safe by physical therapy. She will follow-up with me in the office as planned and scheduled. Physical Exam Const: COMMON NORMALS: no acute distress, average body habitus, patient oriented x3 and alert GENERAL APPEARANCE: cooperative and comfortable ORIENTATION/CONSCIOUSNESS: Yes awake HENMT: COMMON NORMALS: normocephalic and atraumatic HEAD & SCALP: normocephalic and atraumatic Eye: GENERAL EYE: appearance normal, both eyes and all related structures Chest: COMMONS NORMALS: normal inspection of the chest Resp: COMMON NORMALS: normal respiratory effort EFFORT & INSPECTION: Yes able to speak in complete sentences and Yes symmetric chest movement Extremity: LEFT LOWER EXTREMITY: Yes knee joint (No evidence of DVT, neurologically intact.) Left knee: Yes palpation (Minimal tenderness.), Yes ROM (Not evaluated, but able to straight leg raise) and Yes neurovascular exam (Intact distally with no evidence of DVT) Neuro: COMMON NORMALS: patient oriented x3 SENSORIUM/ORIENTATION: Yes alert Psych: COMMON NORMALS: mental status grossly normal APPEARANCE: Yes grossly normal ATTITUDE: Yes calm and Yes engaged ATTENTION/CONCENTRATION: Yes attention grossly intact Skin: COMMON NORMALS: no rashes or lesions noted GENERAL SKIN EXAM: no rashes or lesions noted Urinary Catheter Management: [place]: Cath Placed During This Visit: yes, but has since been removed by the nurse Reason for Continuing Indwelling Catheter: Decision to DC Catheter Urinary Catheter Date of Insertion: 03/03/24 Urinary Catheter Time of Insertion: 11:35 Date Urinary Catheter Removed: 03/04/24 Time Urinary Catheter Discontinued: 06:34 Discharge Data Studies Completed and Pending Completed Studies During Hospitalization Category Date Time Status XR knee LT 1-2V [id number] Urgent Exams 03/03/24 14:20 Completed Radiology Impressions Knee X-Ray 03/03/24 14:20 IMPRESSION: Total left knee arthroplasty without abnormality. Laboratory Results WBC 5.85 10^3/uL (3.29-11.43) 03/04/24 04:59 RBC 3.30 10^6/uL (3.85-5.65) L 03/04/24 04:59 Hgb 10.00 g/dL (11.27-16.99) L 03/04/24 04:59 Hct 30.6 % (36-47) L 03/04/24 04:59 MCV 92.7 fl (85-98) 03/04/24 04:59 MCH 30.3 pg (27-33) 03/04/24 04:59 MCHC 32.7 g/dL (30-55) 03/04/24 04:59 RDW 13.9 % (12.1-15.1) 03/04/24 04:59 Plt Count 189 10^3/cmm (157-399) 03/04/24 04:59 MPV 11.0 fL (7.4-10.4) H 03/04/24 04:59 Neut % (Auto) 66.6 % 03/04/24 04:59 Lymph % (Auto) 22.1 % 03/04/24 04:59 [place] % (Auto) 9.1 % 03/04/24 04:59 Eos % (Auto) 1.5 % 03/04/24 04:59 Baso % (Auto) 0.5 % 03/04/24 04:59 Neut # (Auto) 3.90 10^3/uL (1.8-7.7) 03/04/24 04:59 Lymph # (Auto) 1.3 10^3/uL (0.8-4.8) 03/04/24 04:59 [place] # (Auto) 0.5 10^3/uL (0.2-0.9) 03/04/24 04:59 Eos # (Auto) 0.1 10^3/uL (0.0-0.8) 03/04/24 04:59 Baso # (Auto) 0.0 10^3/uL (0.0-0.1) 03/04/24 04:59 Nucleated RBC % (auto) 0 % 03/04/24 04:59 Nucleated RBCs # 0.0 /100WBC 03/04/24 04:59 Sodium 133 mmol/L (136-145) L 03/04/24 04:59 Potassium 4.3 mmol/L (3.5-5.1) 03/04/24 04:59 Chloride 99 mmol/L (98-107) 03/04/24 04:59 Carbon Dioxide 26 mmol/L (22-29) 03/04/24 04:59 Anion Gap 12.3 (5-19) 03/04/24 04:59 BUN 12 mg/dL (8-23) 03/04/24 04:59 Creatinine 0.5 mg/dL (0.5-0.9) 03/04/24 04:59 GFR Calculation 123.1 mL/min (90-130) 03/04/24 04:59 Glucose 149 mg/dL (65-115) H 03/04/24 04:59 POC Glucose 163 mg/dL (70-110) H 03/04/24 07:21 Calculated Osmolality 279 mOsm/kg (285-295) L 03/04/24 04:59 Calcium 8.3 mg/dL (8.5-10.5) L 03/04/24 04:59 Vitals Last Vital Signs Temp 98.5 F 03/04/24 15:11 Pulse 68 03/04/24 15:11 Resp 16 03/04/24 15:11 BP 149/71 03/04/24 15:11 Pulse Ox 94 03/04/24 15:11 O2 Del Method Room Air 03/04/24 15:11 O2 Flow Rate 2 03/03/24 14:22 Discharge Plan Discharge Patient Disposition: Home Health Service Condition: Stable Prescriptions: New celecoxib 200 mg Capsule 200 mg PO 1XD 30 Days Qty: 30 0RF acetaminophen 500 mg Tablet 1,000 mg PO Q8H 15 Days Qty: 90 0RF aspirin 325 mg Tablet,Delayed Release (Dr/Ec) 325 mg PO DAILY 30 Days Qty: 30 0RF oxycodone 5 mg Tablet 5 - 10 mg PO Q4H PRN (Reason: Moderate To Severe Pain) 7 Days Qty: 40 0RF Continued (DME) osteoarthritis knee brace See Rx Instructions .Route .MEDSUPPLY Qty: 1 0RF Rx Instructions: As directed atorvastatin 10 mg tablet 10 mg PO BEDTIME Qty: 90 1RF Enbrel SureClick 50 mg/mL (1 mL) pen injector 50 mg SUBCUT Q7D Qty: 4 5RF Hold Instructions: pt on chemo hydroxychloroquine [Plaquenil] 200 mg tablet 200 mg PO BID Qty: 180 1RF Hold Instructions: Resume on 05/28/22. estradiol 0.01 % (0.1 mg/gram) cream 2 g vaginal DAILY Qty: 42.5 2RF Rx Instructions: Use 2 gm nightly for two weeks, then 1 gm three times a week Victoza 3-Marquez 0.6 mg/0.1 mL (18 mg/3 mL) pen injector 1.8 mg SUBCUT Q24H Qty: 9 1RF omeprazole 40 mg capsule,delayed release(DR/EC) 40 mg PO BID Qty: 180 0RF cholecalciferol (vitamin D3) [Vitamin D3] 25 mcg (1,000 unit) Capsule 50 mcg PO DAILY levothyroxine 100 mcg tablet 100 mcg PO DAILY Rx Instructions: Take 1 tablet by mouth once daily methotrexate sodium 2.5 mg tablet 10 mg PO .WEEK Rx Instructions: Split dose.. take 4 tabs in the AM and 4 tabs in the PM on the same day once a week folic acid 1 mg tablet 1 mg PO DAILY Rx Instructions: Take 1 tablet by mouth once daily pregabalin [Lyrica] 100 mg capsule 100 mg PO BID Rx Instructions: TAKES 1 IN THE MORNING AND 2 AT NIGHT Discharge Orders: Discharge Order (Routine); Ordered 03/04/24 Ordered By: Crystal Le Referrals: [facility] [Outside] Crystal Le MD [Physician] - 03/16/24 3:30 pm Discharge Diet: Advance as tolerated and Usual diet Discharge Activity: Limit activity as instructed, Use walker/crutches as instructed and As per PT/OT instructions Patient Instructions: Aspirin (By mouth), Oxycodone, Rapid Release (By mouth), Celecoxib (By mouth), Acute Wound Care (DC), Total Knee Replacement (GEN), Joint Replacement Stoplight, Opioid Safety, Post Anesthesia Care Activity Restrictions/Additional Instructions: Ice and elevation to left lower extremity. Maintain the clear plastic dressing until it either lifts off and leaks, comes off on its own, or you are seen in the office. Gait training, ambulation, and strengthening per physical therapy. Weightbearing as tolerated. Discharge Attestations Time Spent in Discharge Care*: greater than 30 min Specific Discharge Activities: educating patient, educating and/or supporting family/caregiver, documenting/other paperwork and evaluating patient/reviewing data Quality Metrics Clinical Quality Measures [ No reported AMI, CVA or VTE this stay] Coding Level of Care Code Acute Code for Chg Fwd Diagnoses Primary osteoarthritis of left knee M17.12 Status post total left knee replacement not using cement Z96.652
--- NOTE | 2024-03-04 17:40 | PC.NURSE ---
Charge nurse discharged patient. Discussed medications, follow up appointments, restrictive activities. IV was pulled and medications sent to [facility]. Patient wheeled out in wheel chair. Patient verbalized understanding
== END 2024-03-04 16:30 | disposition home health service (06) ==
LOC: MEDSURG 03-04 12:02 → OR 03-04 12:57
PROVIDERS: Admitting Provider Specialist; PCP Family Medicine; Visit Provider Specialist
PROC: 8E0Y0CZ Robotic Assisted Procedure of Lower Extremity, Open Approach (ICD-10-PCS; CPT 27447; principal; 2024-03-03 11:35)
DX: M17.12 Unilateral primary osteoarthritis, left knee (principal); M21.162 Varus deformity, not elsewhere classified, left knee; Z98.1 Arthrodesis status; K21.9 Gastro-esophageal reflux disease without esophagitis; E11.9 Type 2 diabetes mellitus without complications; E78.5 Hyperlipidemia, unspecified
CPT/HCPCS: 20985; 27447; 36415; 36416; 51702; 73560; 80048; 82962; 85025; 97110; 97116; 97161; 97165; C1776; C9290; G0378; J0131; J0171; J0690; J2250; J2704; J3370; J3490; J7030

== ENCOUNTER → 2024-03-18 08:14 | Outpatient (BNVA) | payer MEDICARE, OTHER, SELFPAY | PROVIDERS: PCP Family Medicine; Visit Provider Specialist | DX: Z96.652 Presence of left artificial knee joint (principal); M17.12 Unilateral primary osteoarthritis, left knee | CPT/HCPCS: 73560; 73565; 99024 ==

== ENCOUNTER → 2024-05-25 07:44 | Outpatient (BNVA) | payer MEDICARE, OTHER, SELFPAY | PROVIDERS: PCP Family Medicine; Visit Provider Specialist | DX: Z96.652 Presence of left artificial knee joint (principal); M17.12 Unilateral primary osteoarthritis, left knee | CPT/HCPCS: 73560; 73565; 99024 ==

== ENCOUNTER → 2024-06-18 09:56 | Outpatient (BNVA) | payer MEDICARE, OTHER, SELFPAY | PROVIDERS: PCP Family Medicine; Visit Provider Orthopaedic Surgery | DX: Z98.1 Arthrodesis status (principal) | CPT/HCPCS: 72050; 99213 ==

== ENCOUNTER → 2024-06-23 13:47 | Outpatient (BNVA) | payer MEDICARE, OTHER, SELFPAY | PROVIDERS: PCP Family Medicine; Visit Provider Family Medicine | DX: E03.9 Hypothyroidism, unspecified (principal) | CPT/HCPCS: 84439; 84443 ==

== ENCOUNTER → 2024-08-27 09:17 | Outpatient (BNVA) | payer MEDICARE, OTHER, SELFPAY | PROVIDERS: PCP Family Medicine; Visit Provider Family Medicine | DX: E11.9 Type 2 diabetes mellitus without complications (principal) | CPT/HCPCS: 80053; 80061; 82043; 83036; 85025 ==

== ENCOUNTER 2024-10-30 10:13 | Outpatient (CLI) | payer MEDICARE, OTHER, SELFPAY ==
--- NOTE | 2024-10-30 10:40 | MM_ITS ---
WS: [id number] BILATERAL 3D TOMOSYNTHESIS DIGITAL SCREENING MAMMOGRAPHY WITH CAD CLINICAL INFORMATION: screening HISTORY: Screening mammogram. No current complaints. COMPARISON: 2023 TECHNIQUE: Bilateral CC and MLO views. FINDINGS: Scattered fibroglandular densities bilaterally. No suspicious focal mass, asymmetry, calcifications, or architectural distortion. No evidence of malignancy. A few incidental intramammary lymph nodes. Vascular calcification. MM/MM scr tomosynthesis [id number] IMPRESSION: DENSITY: There are scattered areas of fibroglandular density. BI-RADS: 2 - Benign. FOLLOW UP: 1 Year Follow-up Recommend return to annual screening mammography.
--- NOTE | 2024-10-30 11:00 | US_ITS ---
WS: [id number] INDICATION: RIGHT hamstring lump TECHNIQUE: Ultrasound soft tissue of concern FINDINGS: Ultrasound soft tissue area of concern RIGHT hamstring. In the area of concern, there is a well-circumscribed ovoid nodule compatible with lipoma measuring 2.1 x 2.6 x 1.0 cm. No other suspicious findings. US/US soft tissue/extremity [id number] IMPRESSION: See discussion above
== END 2024-10-30 10:14 | disposition home or self-care (01) ==
LOC: RAD 10:14
PROVIDERS: PCP Family Medicine; Visit Provider Family Medicine
DX: Z12.31 Encounter for screening mammogram for malignant neoplasm of breast (principal); R92.323 Mammographic fibroglandular density, bilateral breasts; R92.1 Mammographic calcification found on diagnostic imaging of breast; R59.1 Generalized enlarged lymph nodes
CPT/HCPCS: 76882; 77063; 77067

== ENCOUNTER → 2024-11-16 08:56 | Outpatient (BNVA) | payer MEDICARE, OTHER, SELFPAY | PROVIDERS: PCP Family Medicine; Visit Provider Family Medicine | DX: E03.9 Hypothyroidism, unspecified (principal) | CPT/HCPCS: 84439; 84443 ==

== ENCOUNTER → 2024-11-23 08:59 | Outpatient (BNVA) | payer MEDICARE, OTHER, SELFPAY | PROVIDERS: PCP Family Medicine; Visit Provider Specialist | DX: M25.561 Pain in right knee (principal); M25.562 Pain in left knee; Z96.652 Presence of left artificial knee joint; Z96.651 Presence of right artificial knee joint | CPT/HCPCS: 73560; 73565; 99213 ==

== ENCOUNTER → 2024-12-15 09:50 | Outpatient (BNVA) | payer MEDICARE, OTHER, SELFPAY | PROVIDERS: PCP Family Medicine; Visit Provider Internal Medicine Rheumatology | DX: Z79.899 Other long term (current) drug therapy (principal); Z71.85 Encounter for immunization safety counseling; L40.50 Arthropathic psoriasis, unspecified; L40.0 Psoriasis vulgaris; Z96.651 Presence of right artificial knee joint; M17.12 Unilateral primary osteoarthritis, left knee; E11.9 Type 2 diabetes mellitus without complications | CPT/HCPCS: 99214 ==

== ENCOUNTER 2024-12-16 09:07 | Outpatient (CLI) | payer MEDICARE, OTHER, SELFPAY ==
[2024-12-16 10:00] LABS: Hematocrit 43.7 % (36-47); Hemoglobin 14.40 g/dL (11.27-16.99); Mean Corpuscular HGB Conc 33.0 g/dL (30-55); Mean Corpuscular Hemoglobin 29.7 pg (27-33); Mean Corpuscular Volume 90.1 fl (85-98); Nucleated Red Blood Cells % 0 %; Platelet Count 266 10^3/cmm (157-399); Red Blood Count 4.85 10^6/uL (3.85-5.65); White Blood Count 6.51 10^3/uL (3.29-11.43)
[2024-12-16 10:28] LABS: Alanine Aminotransferase 14 U/L (0-33); Albumin Level 4.2 g/dL (3.5-5.2); Alkaline Phosphatase 95 U/L (35-105); Aspartate Amino Transferase 15 U/L (0-32); Globulin 3.2 g/dL (1.3-4.6); Total Protein 7.4 g/dL (6.6-8.7)
[2024-12-16 22:11] LABS: Hepatitis B Surface Antigen Non-Reactive (Nonreactive)
== END 2024-12-16 09:08 | disposition home or self-care (01) ==
PROVIDERS: PCP Family Medicine; Visit Provider Internal Medicine Rheumatology
DX: Z79.899 Other long term (current) drug therapy (principal)
CPT/HCPCS: 80076; 82306; 82565; 85025; 85651; 86140; 86480; 86704; 86803; 87340

== ENCOUNTER → 2024-12-31 07:49 | Outpatient (BNVA) | payer MEDICARE, OTHER, SELFPAY | PROVIDERS: PCP Family Medicine; Visit Provider Internal Medicine | DX: E04.1 Nontoxic single thyroid nodule (principal); E89.6 Postprocedural adrenocortical (-medullary) hypofunction; Z90.89 Acquired absence of other organs; Z98.890 Other specified postprocedural states; E27.9 Disorder of adrenal gland, unspecified; E03.9 Hypothyroidism, unspecified; E11.9 Type 2 diabetes mellitus without complications; E28.2 Polycystic ovarian syndrome | CPT/HCPCS: 99204 ==

== ENCOUNTER 2025-01-08 08:06 | Outpatient (CLI) | payer MEDICARE, OTHER, SELFPAY ==
--- NOTE | 2025-01-08 08:30 | US_ITS ---
WS: [id number] ULTRASOUND THYROID TECHNIQUE: Ultrasound of the thyroid. CLINICAL INFORMATION: thyroid nodule COMPARISON: 2022 FINDINGS: Prior RIGHT thyroidectomy. No evidence of recurrent mass or lesion in the thyroid bed. Left thyroid lobe: 3.3 cm x 1.2 cm x 1.0 cm Stable LEFT inferior spongiform thyroid nodule measuring 5 x 4 x 6 mm unchanged. Isthmus: 0.2 mm. Cervical lymphadenopathy: None. US/US thyroid [id number] IMPRESSION: 1. Prior RIGHT thyroidectomy. No evidence of recurrent mass or lesion in the t hyroid bed. 2. Stable LEFT inferior spongiform thyroid nodule measuring 5 x 4 x 6 mm uncha nged. TI-RADS 1 benign
[2025-01-08] MEDS: iohexol 350 mg/mL 500 mL Btl (per mL) IV (08:35)
--- NOTE | 2025-01-08 09:00 | CT_ITS ---
WS: [id number] CT ABDOMEN WITH AND WITHOUT CONTRAST HISTORY: ADRENAL NODULE, history of LEFT adrenalectomy. Adrenal gland protocol performed which includes pre and postcontrast imaging with delayed imaging. Oral contrast was not been provided. Coronal and sagittal reformats are submitted. All CT scans at [facility] use at least one of these dose optimization techniques: automated exposure control; mA and/or kV adjustment per patient size (includes targeted exams where dose is matched to clinical indication); or iterative reconstruction. IV CONTRAST: Omnipaque 350; 100 mL IV. Oral contrast: No DLP: 1661.14 mGy.cm COMPARISON: 02/13/2024 Lower thorax: 3 mm micronodule at the LEFT lung base is stable. Heart is normal size. No hiatal hernia. Liver/biliary system: Mildly elevated RIGHT diaphragm causing elevation of the liver into the lower thorax. No intrahepatic duct dilatation or mass. Normal portal vein. Gallbladder: Normal. No gallstones or wall thickening. No pericholecystic fluid. Pancreas: Normal size pancreas and pancreatic duct. No adjacent inflammation. Spleen: Normal size spleen. No mass or infarct. Adrenal glands: Mild adrenal gland thickening up to 5 mm of each limb. There is no mass or abnormal enhancement. There is no well-circumscribed mass. No LEFT adrenal gland. Prior adrenalectomy. Right kidney: Normal. Left kidney: Too small to characterize cortical hypodensities. Stable since 02/13/2024. Aorta: Moderate atherosclerosis with no aneurysm. Lymphadenopathy: None. Free fluid: None. GI tract: Stomach is distended with food products. Visualized GI tract is not obstructed. No colitis. Abdominal wall: Fat containing umbilical hernia. Visualized osseous structures: Unremarkable. CT/CT abdomen wo/w con [id number] IMPRESSION: 1. Status post LEFT adrenalectomy. No recurrent mass at the adrenal gland bed. 2. Very mild hyperplasia and thickening of the RIGHT adrenal gland limbs. No m ass. 3. No renal obstruction. 4. Mild atherosclerosis aorta.
== END 2025-01-08 08:07 | disposition home or self-care (01) ==
LOC: RAD 08:07
PROVIDERS: PCP Family Medicine; Visit Provider Family Medicine
DX: E27.9 Disorder of adrenal gland, unspecified (principal); E04.1 Nontoxic single thyroid nodule; I70.0 Atherosclerosis of aorta; R93.3 Abnormal findings on diagnostic imaging of other parts of digestive tract; E89.0 Postprocedural hypothyroidism; E89.6 Postprocedural adrenocortical (-medullary) hypofunction
CPT/HCPCS: 74170; 76536

== ENCOUNTER → 2025-02-01 10:02 | Outpatient (BNVA) | payer MEDICARE, OTHER, SELFPAY | PROVIDERS: PCP Family Medicine; Visit Provider Family Medicine | DX: Z13.6 Encounter for screening for cardiovascular disorders (principal); M79.675 Pain in left toe(s) | CPT/HCPCS: 80053; 84550 ==

== ENCOUNTER 2025-03-10 11:47 | Outpatient (CLI) | payer MEDICARE, OTHER, SELFPAY ==
--- NOTE | 2025-03-10 07:47 | CT_ITS ---
WS: [id number] LDCT LUNG CANCER SCREENING HISTORY: screening TECHNIQUE: Axial imaging performed from the apices to 1 cm below the costophrenic angles. Coronal and sagittal reformats are submitted with axial MIP series. All CT scans at [facility] use at least one of these dose optimization techniques: automated exposure control; mA and/or kV adjustment per patient size (includes targeted exams where dose is matched to clinical indication); or iterative reconstruction. DLP: 76.41 mGy.cm DIvol: Mean CTDIvol: 2.00 (mGy) COMPARISON: 01/17/2024 Diagnostic quality: Satisfactory Lungs: No change in the 8 mm calcified nodule in the RIGHT middle lobe. 3 mm nodule in the posterior RIGHT upper lobe. 3 mm nodule medial LEFT upper lobe. 3 mm nodule LEFT lower lobe. Heart: Normal size heart with no pericardial effusion.. Other findings: Normal size aorta. Mild atherosclerosis aorta. No mediastinal or hilar adenopathy. Unremarkable upper abdomen. CT/CT lung screening [id number] IMPRESSION: LUNG-RADS: 2-Benign Appearance or Behavior FOLLOW UP: 12 Month: Continue annual screening with LDCT OTHER FINDINGS (S MODIFIER): None.
[2025-03-10 12:35] LABS: Hematocrit 43.0 % (36-47); Hemoglobin 14.60 g/dL (11.27-16.99); Mean Corpuscular HGB Conc 34.0 g/dL (30-55); Mean Corpuscular Hemoglobin 29.3 pg (27-33); Mean Corpuscular Volume 86.2 fl (85-98); Nucleated Red Blood Cells % 0 %; Platelet Count 257 10^3/cmm (157-399); Red Blood Count 4.99 10^6/uL (3.85-5.65); White Blood Count 6.26 10^3/uL (3.29-11.43)
[2025-03-10 13:11] LABS: Alanine Aminotransferase 21 U/L (0-33); Albumin Level 4.3 g/dL (3.5-5.2); Alkaline Phosphatase 94 U/L (35-105); Aspartate Amino Transferase 25 U/L (0-32); Globulin 3.2 g/dL (1.3-4.6); Total Protein 7.5 g/dL (6.6-8.7)
== END 2025-03-10 11:48 | disposition home or self-care (01) ==
PROVIDERS: Internal Medicine Rheumatology; PCP Family Medicine; Visit Provider Family Medicine
DX: Z12.2 Encounter for screening for malignant neoplasm of respiratory organs (principal); Z87.891 Personal history of nicotine dependence; L40.50 Arthropathic psoriasis, unspecified; M06.4 Inflammatory polyarthropathy; M06.041 Rheumatoid arthritis without rheumatoid factor, right hand; M06.042 Rheumatoid arthritis without rheumatoid factor, left hand; I70.0 Atherosclerosis of aorta
CPT/HCPCS: 36415; 71271; 80076; 82565; 85025; 85651; 86140